=== PATIENT | female | born 1965 | race Hispanic/Latino ===

== ENCOUNTER 2020-11-09 01:14 | Inpatient (IN) | payer MEDICAID ==
--- NOTE | 2020-11-09 01:45 | Emergency Department Report ---
HPI - General Chief Complaint: Cardiac Arrest/CPR Time Seen by Provider: 11/09/20 01:37 - HPI HPI: Room 20 The patient is a 55-year-old female present with a chief complaint of cardiac arrest. Per the family the patient was last seen approximately 5 minutes prior was found by family unresponsive on the bed.family initiated CPR after calling 911. EMS arrived on scene and states that the patient was found to be in asystole initially. ACLS protocols were initiated and patient was intubated using a Paul airway. EMS states they administered 3 rounds epinephrine and 1 round of sodium bicarb and there was ROSC. EMS then initiated an epi drip. Upo n arrival to the ED the patient had a pulse but was hypotensive. The Paul airway was removed and the patient was intubated by myself using 7.0 ET tube. The patient had an IO in the left lower extremity placed by EMS however his functionality upon arrival to the ED was questionable. Subsequently a central line was placed by myself expediently to initiate vasopressors ED Past Medical Hx - Past Medical History Previous Medical History?: Yes Hx of Cancer: Yes (Breast CA) Additional medical history: Cellulitis - Family History Family history: no significant - Social History Smoking Status: Unknown if ever smoked Substance Use Type: None ED Review of Systems ROS: Stated complaint: CARDIAC ARREST Other details as noted in HPI Comment: Unobtainable due to pts medical conditions Physical Exam - Physical Exam Physical Exam: GENERAL: The patient is well-developed well-nourished female lying on stretcher being bagged via Paul airway. [] HEENT: Normocephalic. Atraumatic. Pupils 5 mm bilaterally NECK: Supple. Trachea midline CHEST/LUNGS: Breath sounds equal bilaterally with bagging after intubation by myself HEART/CARDIOVASCULAR: Regular. There is no tachycardia. There is no gallop rub or murmur. ABDOMEN: Abdomen is soft, nontender. Patient has normal bowel sounds. There is no abdominal distention. SKIN: There is diffuse intertriginous candidiasis present NEURO: GCS 3 T. MUSCULOSKELETAL: There is no evidence of acute injury. ED Course - Reevaluation(s) Reevaluation #1: 11/09/20 04:12 Informed by nursing that patient had a run of V. tach. Ordered amiodarone bolus and drip - Consultations Consultation #1: 11/09/20 01:57 EKG sent to and discussed with rubber goods repairer Dr. Matt Santoyo. No STEMI/no posterior PA. Recommends initiating heparin drip Consultation #2: 11/09/20 04:50 Fiber Heel Piece Shaper paged 11/09/20 05:25 CT findings discussed with Dr. Sandhu-left small apical pneumothorax can be observed for now. Recommends daily chest x-ray and having surgery on board. Consultation #3: 11/09/20 05:27 Case discussed with surgeon Dr. Haney - Central Line Placement Right Femoral Consent Obtained: emergent situation Time Out Performed: No Patient Placed on Monitor/Pulse Ox: No MD Prep: mask, gown, gloves Central Line Prep: Chlorhexidine scrub Local Anesthesia Used: Lidocaine 1% Amount of Anesthesia Used (mls): 5 Ultrasound Used for Placement: No Central Line Lumen Inserted: triple Reason for Insertion: High Alert Medication Bloods Obtained for Lab: No Central Line Position: good blood return, all ports aspirated, flus Dressing Applied: Tegaderm Patient Tolerated Procedure: no complications Complications: none - Intubation Time Out Performed: No Laryngoscope: Nasim Size: 3 ET Tube Size: 7 Tube Secured Depth (cm): 21 Tube Secured Location: lips Tube Placement Confirmation: visualized tube passing t, equal breath sounds bilat, no breath sounds over epi, confirmation by capnometr Patient Tolerated Procedure: no complications Intubation Complications: none ED Medical Decision Making - Lab Data Result diagrams: 11/09/20 01:43 11/09/20 01:43 Laboratory Tests 11/09/20 11/09/20 11/09/20 01:39 01:43 01:43 WBC 34.3 H RBC 4.25 Hgb 11.4 Hct 36.7 MCV 86 MCH 27 L MCHC 31 RDW 15.4 H Plt Count 298 Lymph # (Auto) Gold Wheel Blocker And Polisher Add Manual Diff Complete Total Counted 200 Seg Neuts % (Manual) 65.0 Band Neutrophils % 8.5 Lymphocytes % (Manual) 21.5 Monocytes % (Manual) 5.0 Nucleated RBC % Not Reportable Seg Neutrophils # Man 22.3 H Band Neutrophils # 2.9 Lymphocytes # (Manual) 7.4 H Abs React Lymphs (Man) 0.0 Monocytes # (Manual) 1.7 H Eosinophils # (Manual) 0.0 Basophils # (Manual) 0.0 Metamyelocytes # 0.0 Myelocytes # 0.0 Promyelocytes # 0.0 Blast Cells # 0.0 WBC Morphology Not Reportable Hypersegmented Neuts Not Reportable Hyposegmented Neuts Not Reportable Hypogranular Neuts Not Reportable Smudge Cells Not Reportable Toxic Granulation Not Reportable Toxic Vacuolation Not Reportable Dohle Bodies Not Reportable Pelger-Huet Anomaly Not Reportable Latia Rods Not Reportable Platelet Estimate Consistent w auto Clumped Platelets Not Reportable Plt Clumps, EDTA Not Reportable Large Platelets Not Reportable Giant Platelets Not Reportable Platelet Satelliting Not Reportable Plt Morphology Comment Not Reportable RBC Morphology Not Reportable Dimorphic RBCs Not Reportable Polychromasia Not Reportable Hypochromasia Not Reportable Poikilocytosis Not Reportable Anisocytosis 1+ Microcytosis Not Reportable Macrocytosis Not Reportable Spherocytes Not Reportable Pappenheimer Bodies Not Reportable Sickle Cells Not Reportable Target Cells Not Reportable Tear Drop Cells Not Reportable Ovalocytes Not Reportable Helmet Cells Not Reportable [place] Bodies Not Reportable [place] Rings Not Reportable [place] Cells Not Reportable Bite Cells Not Reportable Crenated Cell Not Reportable Elliptocytes Not Reportable Acanthocytes (Spur) Not Reportable Rouleaux Not Reportable Hemoglobin C Crystals Not Reportable Schistocytes Not Reportable Malaria parasites Not Reportable Bebeto Bodies Not Reportable Hem Pathologist Commnt No PT 16.3 H INR 1.25 H APTT 49.1 H ABG pH 7.229 L POC ABG pCO2 50.1 H POC ABG pO2 69.4 L POC ABG HCO3 20.5 ABG O2 Saturation 90.2 POC ABG Base Excess -7.3 ABG Hemoglobin 14.2 ABG Oxyhemoglobin 88.9 L ABG Methemoglobin 0.3 ABG Potassium 3.0 L ABG Chloride 99.0 ABG Glucose 361 H Carboxyhemoglobin 1.1 FiO2 % 100.0 Sodium Potassium Chloride Carbon Dioxide Anion Gap BUN Creatinine Estimated GFR BUN/Creatinine Ratio Glucose Calcium Magnesium Total Bilirubin AST ALT Alkaline Phosphatase Total Creatine Kinase CK-MB (CK-2) CK-MB (CK-2) Rel Index Troponin T NT-Pro-B Natriuret Pep Total Protein Albumin Albumin/Globulin Ratio Triglycerides Cholesterol LDL Cholesterol Direct HDL Cholesterol Cholesterol/HDL Ratio TSH Free T4 Arterial Blood Glucose 361 H Arterial Blood Ionized Calcium 4.3 L Blood Type Antibody Screen 11/09/20 11/09/20 11/09/20 01:43 01:43 01:43 WBC RBC Hgb Hct MCV MCH MCHC RDW Plt Count Lymph # (Auto) Add Manual Diff Total Counted Seg Neuts % (Manual) Band Neutrophils % Lymphocytes % (Manual) Monocytes % (Manual) Nucleated RBC % Seg Neutrophils # Man Band Neutrophils # Lymphocytes # (Manual) Abs React Lymphs (Man) Monocytes # (Manual) Eosinophils # (Manual) Basophils # (Manual) Metamyelocytes # Myelocytes # Promyelocytes # Blast Cells # WBC Morphology Hypersegmented Neuts Hyposegmented Neuts Hypogranular Neuts Smudge Cells Toxic Granulation Toxic Vacuolation Dohle Bodies Pelger-Huet Anomaly Latia Rods Platelet Estimate Clumped Platelets Plt Clumps, EDTA Large Platelets Giant Platelets Platelet Satelliting Plt Morphology Comment RBC Morphology Dimorphic RBCs Polychromasia Hypochromasia Poikilocytosis Anisocytosis Microcytosis Macrocytosis Spherocytes Pappenheimer Bodies Sickle Cells Target Cells Tear Drop Cells Ovalocytes Helmet Cells Trevizo[place] Bodies [place] Rings [place] Cells Bite Cells Crenated Cell Elliptocytes Acanthocytes (Spur) Rouleaux Hemoglobin C Crystals Schistocytes Malaria parasites Bebeto Bodies Hem Pathologist Commnt PT INR APTT ABG pH POC ABG pCO2 POC ABG pO2 POC ABG HCO3 ABG O2 Saturation POC ABG Base Excess ABG Hemoglobin ABG Oxyhemoglobin ABG Methemoglobin ABG Potassium ABG Chloride ABG Glucose Carboxyhemoglobin FiO2 % Sodium 138 Potassium 3.7 Chloride 99.3 Carbon Dioxide 15 L Anion Gap 27 BUN 5 L Creatinine 0.8 Estimated GFR > 60 BUN/Creatinine Ratio 6 Glucose 260 H Calcium 7.1 L Magnesium 1.40 L Total Bilirubin 0.30 AST 267 H ALT 114 H Alkaline Phosphatase 258 H Total Creatine Kinase 117 CK-MB (CK-2) 4.1 H CK-MB (CK-2) Rel Index 3.5 Troponin T 0.043 H NT-Pro-B Natriuret Pep 3038 H Total Protein 5.3 L Albumin 2.7 L Albumin/Globulin Ratio 1.0 Triglycerides 168 H Cholesterol 86 LDL Cholesterol Direct 41 L HDL Cholesterol 23 L Cholesterol/HDL Ratio 3.73 TSH 36.290 H Free T4 0.89 Arterial Blood Glucose Arterial Blood Ionized Calcium Blood Type A NEGATIVE Antibody Screen Negative - Radiology Data Radiology results: report reviewed (CT head, CT chest, chest x-ray), image reviewed (Chest x-ray, CT head, CT chest) interpreted by me: Chest x-ray-no definite focal infiltrate, no pneumothorax. ET tube in appropriate position. [address] [address] Cat Scan Report Signed Patient: VANDANA VEGAS MR#: [id number] 37 : 1965 Acct:[id number] Age/Sex: 55 / F ADM Date: 11/09/20 Loc: ED Attending Dr: Ordering Physician: FLOR CANNON MD Date of Service: 11/09/20 Procedure(s): CT head/brain wo con Accession Number(s): [id number] cc: FLOR CANNON MD Examination: CT of the head without contrast Clinical information: Altered mental status. Cardiac arrest. Comparison: No relevant prior study is available for comparison Technical: Multiple axial CT images of the head were obtained without intravenous contrast. Sagittal and coronal reformats were obtained. All CTs at this facility utilize dose reduction techniques including automated exposure control, iterative reconstruction and weight based dosing when appropriate to reduce patient radiation dose to as low as reasonable achievable. Findings: INTRACRANIAL CONTENTS: There is no CT evidence of acute intracranial hemorrhage or large territorial infarct. The ventricular system appears normal in size. No extra-axial fluid collections are identified. SKULL: No acute bony abnormality is visualized. ORBITS: The bilateral orbits and globes appear normal PARANASAL SINUSES / MASTOID AIR CELLS: Paranasal sinuses and mastoid air cells appear clear. Impression: 1. No CT evidence of acute intracranial process. Signer Name: Shirley Arshad MD Signed: 11/09/2020 4:31 AM Workstation Name: [id number] Transcribed By: EB Dictated By: Shirley Arshad MD Electronically Authentic ated By: Shirley Arshad MD Signed Date/Time: 11/09/20430 DD/ 7 TD/TT: Print Cancel [address] [address] Cat Scan Report Signed Patient: VANDANA VEGAS MR#: [id number] 37 : 1965 Acc t:[id number] Age/Sex: 55 / F ADM Date: 11/09/20 Loc: ED Attending Dr: Ordering Physician: FLOR CANNON MD Date of Service: 11/09/20 Procedure(s): CT angio chest Accession Number(s): [id number] cc: FLOR CANNON MD CTA CHEST WITH IV CONTRAST INDICATION: Respiratory failure. TECHNIQUE: Axial CT images were obtained through the chest after injection of IV contrast. Coronal oblique 2- D reconstruction images were produced. 3 plane MIP reconstruction images were produced at an independent workstation. All CTs at this facility utilize dose reduction techniques including automated exposure control, iterative reconstruction and weight based dosing when appropriate to reduce patient radiation dose to as low as reasonable achievable. COMPARISON: Chest radiograph, 11/09/2020 FINDINGS: Endotracheal tube is present with tip approximately 1.8 cm above the level of the penny. No filling defects are visualized within the central or segmental pulmonary arteries to suggest pulmonary embolism. The heart is normal in size. Evaluation of the lung parenchyma demonstrates several patchy irregular densities predominantly within the bilateral upper lobes. There is bibasilar atelectasis, right greater than left. There is a small left apical pneumothorax. Limited imaging of the upper abdomen demonstrates demonstrates an esophagogastric tube with distal tip residing in the distal stomach. There is a 1.5 cm calcified stone within the gallbladder. Bones and soft tissues: Evaluation of bony and soft tissue structures demonstrates no acute abnormality. IMPRESSION: 1. Trace left apical pneumothorax. 2. Faint patchy parenchymal densities predominantly involving the bilateral upper lobes. Findings are nonspe cific and considerations would include infectious or inflammatory process, embolic phenomenon or neoplasm. 3. No evidence of pulmonary embolism. Positive critical value of small left apical pneumothorax was identified at approximately 3:40 AM and personally communicated to Dr. Cannon in the Emergency Department at 3:48. CRITICAL RESULT: Time of Discovery (SHELLS INSPECTOR/CDT): 3:40 AM Time of Communication (SHELLS INSPECTOR/CDT): 3:48 AM Licensed Practitioner Receiving Report: Dr. Cannon Read-Back Performed: Yes. Signer Name: Shirley Arshad MD Signed: 11/09/2020 4:49 AM Workstation Name: [id number] Transcribed By: PRASAD Dictated By: Shirley Arshad MD Electronically Authenticated By: Shirley Arshad MD Signed Date/Time: 11/09/20448 DD/ 8 TD/TT: Print Cancel [facility] [address] [place] [address] XRay Report Signed Patient: VANDANA VEGAS MR#: [id number] 37 : 1965 Acct:[id number] Age/Sex: 55 / F ADM Date: 11/09/20 Loc: ED Attending Dr: Ordering Physician: FLOR CANNON MD Date of Service: 11/09/20 Procedure(s): XR chest 1V ap Accession Number(s): [id number] cc: FLOR CANNON MD Fluoro Time In Minutes: CHEST 1 VIEW, 11/09/2020 1:33 AM CLINICAL INFORMATION/INDICATION: Respiratory failure. Endotracheal tube placement COMPARISON: None. FINDINGS: SUPPORT DEVICES: The distal and of the esophagogastric tube is located approximately 1.8 cm above the level the penny. An esophagogastric tube is present with tip overlying the expected position of the distal stomach. Right- sided Port-A-Cath is also present. HEART: The cardiac silhouette is normal in size. LUNGS/PLEURA: The lungs appear grossly clear of focal airspace disease or significant pleural effusion. ADDITIONAL FINDINGS: There is moderate gaseous distention of the stomach. IMPRESSION: 1. Placement of endotracheal tube and esophagogastric tube as above. Signer Name: Shirley Arshad MD Signed: 11/09/2020 2:17 AM Workstation Name: [id number] Transcribed By: PRASAD Dictated By: Shirley Arshad MD Electronically Authenticated By: Shirley Arshad MD Signed Date/Time: 11/09/20216 DD/ 4 TD/TT: Print Cancel - Differential Diagnosis Cardiac arrest Critical Care Time: Yes Critical care time in (mins) excluding proc time.: 30 Critical care attestation.: If time is entered above; I have spent that time in minutes in the direct care of this critically ill patient, excluding procedure time. ED Disposition Clinical Impression: Cardiac arrest Disposition: OP ADMIT IP TO THIS HOSP Is pt being admited?: Yes Does the pt Need Aspirin: No Condition: Critical Referrals: JUDY BOLAND MD [Primary Care Provider] - 3-5 Days Time of Disposition: 05:20 (Hospitalist notified (Dr Tello))
[2020-11-09 01:57] LABS: Hematocrit 36.7 % (30.3-42.9); Hemoglobin 11.4 gm/dl (10.1-14.3); Mean Corpuscular HGB Conc 31 % (30-34); Mean Corpuscular Volume 86 fl (79-97); Platelet Count 298 K/mm3 (140-440); Red Blood Count 4.25 M/mm3 (3.65-5.03); Red Cell Distribution Width 15.4 % (13.2-15.2)
[2020-11-09] MEDS ORDERED: SODIUM CHLORIDE 0.9% 1000 ML 1,000 ML IV ONE (02:06)
--- NOTE | 2020-11-09 02:22 | XRay Report ---
CHEST 1 VIEW, 11/09/2020 1:33 AM CLINICAL INFORMATION/INDICATION: Respiratory failure. Endotracheal tube placement COMPARISON: None. FINDINGS: SUPPORT DEVICES: The distal and of the esophagogastric tube is located approximately 1.8 cm above the level the penny. An esophagogastric tube is present with tip overlying the expected position of the distal stomach. Right-sided Port-A-Cath is also present. HEART: The cardiac silhouette is normal in size. LUNGS/PLEURA: The lungs appear grossly clear of focal airspace disease or significant pleural effusio n. ADDITIONAL FINDINGS: There is moderate gaseous distention of the stomach. IMPRESSION: 1. Placement of endotracheal tube and esophagogastric tube as above. Signer Name: Shirley Arshad MD Signed: 11/09/2020 2:17 AM Workstation Name: [id number]
[2020-11-09 02:24] LABS: Alanine Aminotransferase 114 units/L (7-56); Albumin 2.7 g/dL (3.9-5); BUN/Creatinine Ratio 6; Blood Urea Nitrogen 5 mg/dL (7-17); Calcium 7.1 mg/dL (8.4-10.2); Creatine Kinase MB 4.1 ng/mL (0.0-4.0); Hemolysis Index 17
[2020-11-09 02:34] LABS: Free T4 (Free Thyroxine) 0.89 ng/dL (0.76-1.46)
[2020-11-09 02:47] LABS: INR 1.25 (0.87-1.13)
[2020-11-09 02:48] LABS: Partial Thromboplastin Time 49.1 Sec. (24.2-36.6)
[2020-11-09] MEDS ORDERED: MAGNESIUM SULFATE 2 GM/50 ML BAG IV ONE ×2 (02:49→16:00)
[2020-11-09] MEDS ORDERED: PIPERACIL/TAZOBACTA 4.5/NS 100 4.5 GM/100 ML VIAL IV ONE (03:04)
[2020-11-09] MEDS ORDERED: ROCURONIUM 50 MG/5 ML INJ IV ONE ×2 (03:24→03:25)
[2020-11-09] MEDS ORDERED: AMIODARONE 150 MG in DEXTROSE 5% IN WATER 97 ML IV ONE (04:08)
[2020-11-09 04:15] LABS: Band Neutrophils # (Manual) 2.9 K/mm3; Total Cells Counted 200
[2020-11-09 04:16] LABS: Anisocytosis 1+; Platelet Estimate Consistent w Auto
[2020-11-09 04:26] LABS: Chol/HDL Ratio 3.73 %; HDL Cholesterol 23 mg/dL (40-59); LDL Cholesterol,Direct 41 mg/dL (50-130)
--- NOTE | 2020-11-09 04:35 | Cat Scan Report ---
Examination: CT of the head without contrast Clinical information: Altered mental status. Cardiac arrest. Comparison: No relevant prior study is available for comparison Technical: Multiple axial CT images of the head were obtained without intravenous contrast. Sagittal and coronal reformats were obtained. All CTs at this facility utilize dose reduction techniques inc luding automated exposure control, iterative reconstruction and weight based dosing when appropriate to reduce patient radiation dose to as low as reasonable achievable. Findings: INTRACRANIAL CONTENTS: There is no CT evidence of acute intracranial hemorrhage or large territorial infarct. The ventricular system appears normal in size. No extra-axial fluid collections are identifi ed. SKULL: No acute bony abnormality is visualized. ORBITS: The bilateral orbits and globes appear normal PARANASAL SINUSES / MASTOID AIR CELLS: Paranasal sinuses and mastoid air cells appear clear. Impression: 1. No CT evidence of acute intracranial process. Signer Name: Shirley Arshad MD Signed: 11/09/2020 4:31 AM Workstation Name: [id number]
--- NOTE | 2020-11-09 04:53 | Cat Scan Report ---
CTA CHEST WITH IV CONTRAST INDICATION: Respiratory failure. TECHNIQUE: Axial CT images were obtained through the chest after injection of IV contrast. Coronal oblique 2-D reconstruction images were produced. 3 plane MIP reconstruction images were produced at an [employer] workstation. All CTs at this facility utilize dose reduction techniques including automated expos ure control, iterative reconstruction and weight based dosing when appropriate to reduce patient radi ation dose to as low as reasonable achievable. COMPARISON: Chest radiograph, 11/09/2020 FINDINGS: Endotracheal tube is present with tip approximately 1.8 cm above the level of the penny. No filling defects are visualized within the central or segmental pulmonary arteries to suggest pulmo nary embolism. The heart is normal in size. Evaluation of the lung parenchyma demonstrates several pa tchy irregular densities predominantly within the bilateral upper lobes. There is bibasilar atelectas is, right greater than left. There is a small left apical pneumothorax. Limited imaging of the upper abdomen demonstrates demonstrates an esophagogastric tube with distal ti p residing in the distal stomach. There is a 1.5 cm calcified stone within the gallbladder. Bones and soft tissues: Evaluation of bony and soft tissue structures demonstrates no acute abnormali ty. IMPRESSION: 1. Trace left apical pneumothorax. 2. Faint patchy parenchymal densities predominantly involving the bilateral upper lobes. Findings are nonspecific and considerations would include infectious or inflammatory process, embolic phenomenon or neoplasm. 3. No evidence of pulmonary embolism. Positive critical value of small left apical pneumothorax was identified at approximately 3:40 AM and personally communicated to Dr. Brock in the Emergency Department at 3:48. CRITICAL RESULT: Time of Discovery (BLOCK AND CASE MAKER/CDT): 3:40 AM Time of Communication (BLOCK AND CASE MAKER/CDT): 3:48 AM Licensed Practitioner Receiving Report: Dr. Brock Read-Back Performed: Yes. Signer Name: Shirley Arshad MD Signed: 11/09/2020 4:49 AM Workstation Name: [id number]
[2020-11-09] MEDS: AMIODARONE 900 MG in DEXTROSE 5% IN WATER 482 ML IV SCH (04:56)
[2020-11-09] MEDS ORDERED: MORPHINE 2 MG/1 ML INJ IV PRN (05:14)
[2020-11-09] MEDS ORDERED: ONDANSETRON 4 MG/2 ML INJ IV PRN (05:14)
--- NOTE | 2020-11-09 05:26 | History and Physical Report ---
History of Present Illness Date of examination: 11/09/20 Date of admission: 11/09/2020 Chief complaint: Cardiac Arrest History of present illness: 55-year-old female brought into the emergency room by EMS today in cardiac arrest. Patient was said to be unresponsive and family had initiated CPR prior to arrival of EMS. Patient was found to be in asystole and resuscitative measures were commenced and patient subsequently intubated. EMS and given about 3 rounds of epinephrine and 1 round of sodium bicarbonate with return of spontaneous circulation. She was subsequently initiated on epinephrine drip. Upon arrival in the emergency room patient was found to be hypotensive which was subsequently commenced on IV fluid and pressors. Most of the history was gotten from the emergency room staff as patient is currently intubated and there were no family members available. Work-up reveals leukocytosis of 34.3, hypomagnesemia of 1.4, hypocalcemia of 7.1, abnormally elevated liver enzymes. During the course of stay in the emergency room, patient was said to have had some runs of V. tach was subsequently placed on IV amiodarone. Chest x-ray did not reveal any acute abnormality. CTA of the chest reveals trace left apical pneumothorax, faint patchy parenchym al densities involving the bilateral upper lobes. Findings are nonspecific and considerations include infectious or inflammatory process, embolic phenomena or neoplasm. No evidence of pulmonary embolism. General surgeon Dr. Haney has been consulted by the ER physician for the pneumothorax. Optical Effects Line Up Person has also been consulted by the ER physician for the cardiac arrhythmia. Patient has also been placed on heparin drip per recommendation of the jackhammer operator. [facility] [employer] [facility] has also been notified by the ER physician. Past History Past Medical History: other (Breast Ca., H/O Cellulitis) Past Surgical History: Other (Unknown) Social history: other (Unknown) Family history: other (Unknown) Medications and Allergies Allergies Allergy/AdvReac Type Severity Reaction Status Date / Time Unable to Assess Allergy Unverified 11/09/20 01:25 Active Meds: Active Medications Dextrose (Dextrose 50% In Water (25gm) 50 Ml Syringe) 50 ml IV Q30MIN PRN; Protocol PRN Reason: Hypoglycemia Enoxaparin Sodium (Enoxaparin 40 Mg/0.4 Ml Inj) 40 mg SUB-Q QDAY@2200 TROY; Protocol Amiodarone HCl 900 mg/ (Dextrose) 500 mls @ 33.333 mls/hr IV DIRECT TROY; Protocol Last Admin: 11/09/20 04:56 Dose: 1 mg/min, 33.333 mls/hr Documented by: Sodium Chloride (Nacl 0.9% 1000 Ml) 1,000 mls @ 125 mls/hr IV DIRECT TROY Morphine Sulfate (Morphine 2 Mg/1 Ml Inj) 2 mg IV Q4H PRN PRN Reason: Pain, Moderate (4-6) Ondansetron HCl (Ondansetron 4 Mg/2 Ml Inj) 4 mg IV Q8H PRN PRN Reason: Nausea And Vomiting Sodium Chloride (Sodium Chloride 0.9% 10 Ml Flush Syringe) 10 ml IV BID TROY Sodium Chloride (Sodium Chloride 0.9% 10 Ml Flush Syringe) 10 ml IV PRN PRN PRN Reason: LINE FLUSH Review of Systems ROS unobtainable: due to endotracheal tube Exam - Constitutional Vitals: Temp Pulse Resp BP Pulse Ox 104 H 27 H 182/112 91 11/09/20 05:06 11/09/20 05:06 11/09/20 05:06 11/09/20 05:06 General appearance: Present: no acute distress, well-nourished - EENT Eyes: Present: PERRL, EOM intact. Absent: scleral icterus ENT: hearing intact, clear oral mucosa, dentition normal, other (Multiple areas of bruises on scalp) - Neck Neck: Present: supple, normal ROM - Respiratory Respiratory effort: other (Intubated) Respiratory: bilateral: CTA - Cardiovascular Rhythm: regular Heart Sounds: Present: S1 & S2. Absent: gallop, systolic murmur, diastolic murmur, rub, click - Extremities Extremities: no ischemia, pulses intact, pulses symmetrical, No edema, Full ROM Peripheral Pulses: within normal limits - Abdominal General gastrointestinal: Present: soft, non-tender, non-distended, normal bowel sounds. Absent: mass - Integumentary Integumentary: Present: clear, warm, dry, normal turgor. Absent: jaundice, rash - Musculoskeletal Musculoskeletal: strength equal bilaterally - Psychiatric Psychiatric: cooperative - Neurologic Neurologic: CNII-XII intact, no focal deficits, other (Intubated and Sedated) HEART Score - HEART Score Troponin: Troponin T 0.043 ng/mL (0.00-0.029) H 11/09/20 01:43 Results - Labs CBC & Chem 7: 11/09/20 05:31 11/09/20 01:43 Labs: Abnormal lab results 11/09/20 11/09/20 11/09/20 Range/Units 01:39 01:43 01:43 WBC 34.3 H (4.5-11.0) K/mm3 MCH 27 L (28-32) pg RDW 15.4 H (13.2-15.2) % Seg Neutrophils # Man 22.3 H (1.8-7.7) K/mm3 Lymphocytes # (Manual) 7.4 H (1.2-5.4) K/mm3 Monocytes # (Manual) 1.7 H (0.0-0.8) K/mm3 PT 16.3 H (12.2-14.9) Sec. INR 1.25 H (0.87-1.13) APTT 49.1 H (24.2-36.6) Sec. ABG pH 7.229 L (7.320-7.450) POC ABG pCO2 50.1 H (32.0-48.0) mmHg POC ABG pO2 69.4 L (83-108) mmHg ABG Oxyhemoglobin 88.9 L (94-98) ABG Potassium 3.0 L (3.40-4.50) mmol/L ABG Glucose 361 H (65-95) mg/dL Carbon Dioxide (22-30) mmol/L BUN (7-17) mg/dL Glucose (65-100) mg/dL Calcium (8.4-10.2) mg/dL Magnesium (1.7-2.3) mg/dL AST (5-40) units/L ALT (7-56) units/L Alkaline Phosphatase (35-129) units/L CK-MB (CK-2) (0.0-4.0) ng/mL Troponin T (0.00-0.029) ng/mL NT-Pro-B Natriuret Pep (0-900) pg/mL Total Protein (6.3-8.2) g/dL Albumin (3.9-5) g/dL Triglycerides (2-149) mg/dL LDL Cholesterol Direct (50-130) mg/dL HDL Cholesterol (40-59) mg/dL TSH (0.270-4.200) mlU/mL Arterial Blood Glucose 361 H (65-95) mg/dL Arterial Blood Ionized Calcium 4.3 L (4.6-5.3) mg/dL 11/09/20 11/09/20 Range/Units 01:43 01:43 WBC (4.5-11.0) K/mm3 MCH (28-32) pg RDW (13.2-15.2) % Seg Neutrophils # Man (1.8-7.7) K/mm3 Lymphocytes # (Manual) (1.2-5.4) K/mm3 Monocytes # (Manual) (0.0-0.8) K/mm3 PT (12.2-14.9) Sec. INR (0.87-1.13) APTT (24.2-36.6) Sec. ABG pH (7.320-7.450) POC ABG pCO2 (32.0-48.0) mmHg POC ABG pO2 (83-108) mmHg ABG Oxyhemoglobin (94-98) ABG Potassium (3.40-4.50) mmol/L ABG Glucose (65-95) mg/dL Carbon Dioxide 15 L (22-30) mmol/L BUN 5 L (7-17) mg/dL Glucose 260 H (65-100) mg/dL Calcium 7.1 L (8.4-10.2) mg/dL Magnesium 1.40 L (1.7-2.3) mg/dL AST 267 H (5-40) units/L ALT 114 H (7-56) units/L Alkaline Phosphatase 258 H (35-129) units/L CK-MB (CK-2) 4.1 H (0.0-4.0) ng/mL Troponin T 0.043 H (0.00-0.029) ng/mL NT-Pro-B Natriuret Pep 3038 H (0-900) pg/mL Total Protein 5.3 L (6.3-8.2) g/dL Albumin 2.7 L (3.9-5) g/dL Triglycerides 168 H (2-149) mg/dL LDL Cholesterol Direct 41 L (50-130) mg/dL HDL Cholesterol 23 L (40-59) mg/dL TSH 36.290 H (0.270-4.200) mlU/mL Arterial Blood Glucose (65-95) mg/dL Arterial Blood Ionized Calcium (4.6-5.3) mg/dL Assessment and Plan - Patient Problems (1) Cardiac arrest Current Visit: Yes Status: Acute Plan to address problem: Etiology unclear. Patient resuscitated and successfully intubated. Optical Effects Line Up Person and slider assembler has been consulted for evaluation. (2) Hypomagnesemia Current Visit: Yes Status: Acute Plan to address problem: Magnesium will be repleted and will monitor chemistry. (3) Elevated liver enzymes Current Visit: Yes Status: Acute Plan to address problem: We will monitor liver enzymes. Consult placed to gastroenterology for further evaluation. (4) Pneumothorax, left Current Visit: Yes Status: Acute Plan to address problem: Patient has a small left apical pneumothorax. General surgeon was consulted by the ER physician for possible evaluation if needed. We will follow-up with daily chest x-ray. (5) Cardiac arrhythmia Current Visit: Yes Status: Acute Plan to address problem: During the course of her stay in the emergency room patient had some runs of V. tach. Optical Effects Line Up Person was consulted by the ER physician. (6) Leukocytosis Current Visit: Yes Status: Acute Plan to address problem: No obvious source of infection however CT angiogram of the chest reveals possible infectious process. Patient has been commenced on empiric IV antibiotics. (7) DVT prophylaxis Current Visit: Yes Status: Acute Plan to address problem: Patient currently on anticoagulation. (8) Full code status Current Visit: Yes Status: Acute Plan to address problem: Patient is full code. Critical care time spent on patient greater than 60 minutes.
[2020-11-09] MEDS ORDERED: HEPARIN 10,000 UNITS/10 ML VIAL IV PRN (05:28)
[2020-11-09 05:48] LABS: Hemoglobin 15.3 gm/dl (10.1-14.3)
[2020-11-09 05:57] LABS: Hematocrit 47.2 % (30.3-42.9)
[2020-11-09 05:58] LABS: INR 1.12 (0.87-1.13); Partial Thromboplastin Time 32.1 Sec. (24.2-36.6)
[2020-11-09] MEDS: PIPERACIL/TAZOBACTA 4.5/NS 100 4.5 GM/100 ML VIAL IV SCH ×3 (08:27→21:20)
[2020-11-09] MEDS: HEPARIN/ 0.45% NACL DRIP 25,000 UNIT/500 ML BAG IV SCH (08:59)
[2020-11-09] MEDS ORDERED: fentaNYL 100 MCG/2 ML INJ IV PRN (09:04)
--- NOTE | 2020-11-09 09:42 | Gastroenterology Consultation ---
History of Present Illness - Reason for Consult Consult date: 11/09/20 Abnormal LFTs Requesting physician: PERRY ROJAS - History of Present Illness The patient is intubated/sedated; no family members available. History is per the chart and staff. She was brought to the ER after cardiac arrest at home, and was in asystole in the ER. She was intubated and resuscitated, and transferred to the ICU. CTA was negative for a PE. Cardiac w/u in progress. She was noted to have a port present (hx of breast cancer), a WBC of 35K, and elevated LFTs. Since admit to the ICU, she has been non-responsive with myoclonic jerking (despite no current sedation); a CT shows no acute intracranial trauma. Past History Past Medical History: other (Breast Ca., H/O Cellulitis) Past Surgical History: Other (Port a cath) Social history: other (Unknown) Family history: other (Unknown) Medications and Allergies Allergies Allergy/AdvReac Type Severity Reaction Status Date / Time Unable to Assess Allergy Unverified 11/09/20 01:25 Active Meds: Active Medications Dextrose (Dextrose 50% In Water (25gm) 50 Ml Syringe) 0 ml IV Q30MIN PRN; Protocol PRN Reason: Hypoglycemia Fentanyl (Fentanyl 100 Mcg/2 Ml Inj) 50 mcg IV Q10MIN PRN PRN Reason: ANALGESIA Stop: 11/10/20 09:03 Heparin Sodium (Porcine) (Heparin 10,000 Units/10 Ml Vial) 4,100 unit 40 unit/kg (4100 unit) IV Q6H PRN PRN Reason: Anti-Xa Assay<0.1 units/ml Hydrophilic Ointment (Lip Therapy Vaseline) 1 applic TP Q2HR PRN PRN Reason: Dry Lips Amiodarone HCl 900 mg/ (Dextrose) 500 mls @ 33.333 mls/hr IV DIRECT TROY; Protocol Last Admin: 11/09/20 04:56 Dose: 1 mg/min, 33.333 mls/hr Documented by: Sodium Chloride (Nacl 0.9% 1000 Ml) 1,000 mls @ 125 mls/hr IV DIRECT TROY Heparin Sodium/Sodium Chloride (Heparin/ 0.45% Nacl-25,000 Unit/500 Ml) 25,000 unit in 500 mls @ 20 mls/hr IV TITRATE TROY; Protocol Last Admin: 11/09/20 08:59 Dose: 1,000 units/hr, 20 mls/hr Documented by: Piperacillin Sod/Tazobactam Sod (Zosyn/Ns 4.5gm/100ml) 4.5 gm in 100 mls @ 200 mls/hr IV Q8H TROY; Protocol Last Admin: 11/09/20 08:27 Dose: Not Given Documented by: Fentanyl Citrate (Fentanyl Drip Premix) 2,000 mcg in 100 mls @ 5.15 mls/hr IV TITR TROY; Protocol Propofol (Diprivan 10 Mg/Ml) 1,000 mg in 100 mls @ 3.09 mls/hr IV TITR TROY; Protocol Last Admin: 11/09/20 09:33 Dose: 5 mcg/kg/min, 3.09 mls/hr Documented by: Morphine Sulfate (Morphine 2 Mg/1 Ml Inj) 2 mg IV Q4H PRN PRN Reason: Pain, Moderate (4-6) Multi-Ingred Cream/Lotion/Oil/Oint (Mineral Oil/Petrolatum, White Ophth Oint 3.5 Gm) 1 applic OU Q4HR PRN PRN Reason: Dry Eye(s) Ondansetron HCl (Ondansetron 4 Mg/2 Ml Inj) 4 mg IV Q8H PRN PRN Reason: Nausea And Vomiting Sodium Chloride (Sodium Chloride 0.9% 10 Ml Flush Syringe) 10 ml IV BID TROY Sodium Chloride (Sodium Chloride 0.9% 10 Ml Flush Syringe) 10 ml IV PRN PRN PRN Reason: LINE FLUSH I HAVE REVIEWED AND RECONCILED MEDICATIONS Review of Systems - Review of Systems ROS unobtainable: due to endotracheal tube, due to mental status Exam - Constitutional Vital Signs: Temp Pulse Resp BP Pulse Ox 98.7 F 111 H 28 H 152/98 92 11/09/20 08:00 11/09/20 07:41 11/09/20 06:16 11/09/20 07:41 11/09/20 06:16 General appearance: other (Myoclonic jerking; no response to physical or verbal stimuli) - EENT Eyes: PERRL ENT: hearing intact, clear oral mucosa - Neck Neck: supple, normal ROM - Respiratory Respiratory effort: normal Respiratory: bilateral: CTA (Vent) - Breasts Breasts: other (Rash on R breast with mild cellulitis) - Cardiovascular Rhythm: regular Heart Sounds: Present: S1 & S2 Extremities: no ischemia - Gastrointestinal General gastrointestinal: Present: soft, non-tender, non-distended - Integumentary Integumentary: Present: clear, warm, dry - Neurologic Neurological: other (Nonresponsive to verbal or tactile stimuli; myoclonic jerking without focality) - Labs CBC & Chem 7: 11/09/20 05:31 11/09/20 01:43 Lab Results: Laboratory Results - last 24 hr 11/09/20 11/09/20 11/09/20 01:39 01:43 01:43 WBC 34.3 H RBC 4.25 Hgb 11.4 Hct 36.7 MCV 86 MCH 27 L MCHC 31 RDW 15.4 H Plt Count 298 Lymph # (Auto) Call Circuit Worker Add Manual Diff Complete Total Counted 200 Seg Neuts % (Manual) 65.0 Band Neutrophils % 8.5 Lymphocytes % (Manual) 21.5 Monocytes % (Manual) 5.0 Nucleated RBC % Not Reportable Seg Neutrophils # Man 22.3 H Band Neutrophils # 2.9 Lymphocytes # (Manual) 7.4 H Abs React Lymphs (Man) 0.0 Monocytes # (Manual) 1.7 H Eosinophils # (Manual) 0.0 Basophils # (Manual) 0.0 Metamyelocytes # 0.0 Myelocytes # 0.0 Promyelocytes # 0.0 Blast Cells # 0.0 WBC Morphology Not Reportable Hypersegmented Neuts Not Reportable Hyposegmented Neuts Not Reportable Hypogranular Neuts Not Reportable Smudge Cells Not Reportable Toxic Granulation Not Reportable Toxic Vacuolation Not Reportable Dohle Bodies Not Reportable Pelger-Huet Anomaly Not Reportable Latia Rods Not Reportable Platelet Estimate Consistent w auto Clumped Platelets Not Reportable Plt Clumps, EDTA Not Reportable Large Platelets Not Reportable Giant Platelets Not Reportable Platelet Satelliting Not Reportable Plt Morphology Comment Not Reportable RBC Morphology Not Reportable Dimorphic RBCs Not Reportable Polychromasia Not Reportable Hypochromasia Not Reportable Poikilocytosis Not Reportable Anisocytosis 1+ Microcytosis Not Reportable Macrocytosis Not Reportable Spherocytes Not Reportable Pappenheimer Bodies Not Reportable Sickle Cells Not Reportable Target Cells Not Reportable Tear Drop Cells Not Reportable Ovalocytes Not Reportable Helmet Cells Not Reportable [place] Bodies Not Reportable [place] Rings Not Reportable [place] Cells Not Reportable Bite Cells Not Reportable Crenated Cell Not Reportable Elliptocytes Not Reportable Acanthocytes (Spur) Not Reportable Rouleaux Not Reportable Hemoglobin C Crystals Not Reportable Schistocytes Not Reportable Malaria parasites Not Reportable [place]ebeto Bodies Not Reportable Hem Pathologist Commnt No PT 16.3 H INR 1.25 H APTT 49.1 H ABG pH 7.229 L POC ABG pCO2 50.1 H POC ABG pO2 69.4 L POC ABG HCO3 20.5 ABG O2 Saturation 90.2 POC ABG Base Excess -7.3 ABG Hemoglobin 14.2 ABG Oxyhemoglobin 88.9 L ABG Methemoglobin 0.3 ABG Potassium 3.0 L ABG Chloride 99.0 ABG Glucose 361 H Carboxyhemoglobin 1.1 FiO2 % 100.0 Sodium Potassium Chloride Carbon Dioxide Anion Gap BUN Creatinine Estimated GFR BUN/Creatinine Ratio Glucose Hemoglobin A1c Lactic Acid Calcium Magnesium Total Bilirubin AST ALT Alkaline Phosphatase Total Creatine Kinase CK-MB (CK-2) CK-MB (CK-2) Rel Index Troponin T NT-Pro-B Natriuret Pep Total Protein Albumin Albumin/Globulin Ratio Triglycerides Cholesterol LDL Cholesterol Direct HDL Cholesterol Cholesterol/HDL Ratio TSH Free T4 Arterial Blood Glucose 361 H Arterial Blood Ionized Calcium 4.3 L Blood Type Antibody Screen 11/09/20 11/09/20 11/09/20 01:43 01:43 01:43 WBC RBC Hgb Hct MCV MCH MCHC RDW Plt Count Lymph # (Auto) Add Manual Diff Total Counted Seg Neuts % (Manual) Band Neutrophils % Lymphocytes % (Manual) Monocytes % (Manual) Nucleated RBC % Seg Neutrophils # Man Band Neutrophils # Lymphocytes # (Manual) Abs React Lymphs (Man) Monocytes # (Manual) Eosinophils # (Manual) Basophils # (Manual) Metamyelocytes # Myelocytes # Promyelocytes # Blast Cells # WBC Morphology Hypersegmented Neuts Hyposegmented Neuts Hypogranular Neuts Smudge Cells Toxic Granulation Toxic Vacuolation Dohle Bodies Pelger-Huet Anomaly Latia Rods Platelet Estimate Clumped Platelets Plt Clumps, EDTA Large Platelets Giant Platelets Platelet Satelliting Plt Morphology Comment RBC Morphology Dimorphic RBCs Polychromasia Hypochromasia Poikilocytosis Anisocytosis Microcytosis Macrocytosis Spherocytes Pappenheimer Bodies Sickle Cells Target Cells Tear Drop Cells Ovalocytes Helmet Cells [place] Bodies [place] Rings [place] Cells Bite Cells Crenated Cell Elliptocytes Acanthocytes (Spur) Rouleaux Hemoglobin C Crystals Schistocytes Malaria parasites [place]eb[place] Bodies Hem Pathologist Commnt PT INR APTT ABG pH POC ABG pCO2 POC ABG pO2 POC ABG HCO3 ABG O2 Saturation POC ABG Base Excess ABG Hemoglobin ABG Oxyhemoglobin ABG Methemoglobin ABG Potassium ABG Chloride ABG Glucose Carboxyhemoglobin FiO2 % Sodium 138 Potassium 3.7 Chloride 99.3 Carbon Dioxide 15 L Anion Gap 27 BUN 5 L Creatinine 0.8 Estimated GFR > 60 BUN/Creatinine Ratio 6 Glucose 260 H Hemoglobin A1c Lactic Acid Calcium 7.1 L Magnesium 1.40 L Total Bilirubin 0.30 AST 267 H ALT 114 H Alkaline Phosphatase 258 H Total Creatine Kinase 117 CK-MB (CK-2) 4.1 H CK-MB (CK-2) Rel Index 3.5 Troponin T 0.043 H NT-Pro-B Natriuret Pep 3038 H Total Protein 5.3 L Albumin 2.7 L Albumin/Globulin Ratio 1.0 Triglycerides 168 H Cholesterol 86 LDL Cholesterol Direct 41 L HDL Cholesterol 23 L Cholesterol/HDL Ratio 3.73 TSH 36.290 H Free T4 0.89 Arterial Blood Glucose Arterial Blood Ionized Calcium Blood Type A NEGATIVE Antibody Screen Negative 11/09/20 11/09/20 11/09/20 05:31 05:31 05:31 WBC RBC Hgb 15.3 H D Hct 47.2 H D MCV MCH MCHC RDW Plt Count 411 Lymph # (Auto) Add Manual Diff Total Counted Seg Neuts % (Manual) Band Neutrophils % Lymphocytes % (Manual) Monocytes % (Manual) Nucleated RBC % Seg Neutrophils # Man Band Neutrophils # Lymphocytes # (Manual) Abs React Lymphs (Man) Monocytes # (Manual) Eosinophils # (Manual) Basophils # (Manual) Metamyelocytes # Myelocytes # Promyelocytes # Blast Cells # WBC Morphology Hypersegmented Neuts Hyposegmented Neuts Hypogranular Neuts Smudge Cells Toxic Granulation Toxic Vacuolation Dohle Bodies Pelger-Huet Anomaly Latia Rods Platelet Estimate Clumped Platelets Plt Clumps, EDTA Large Platelets Giant Platelets Platelet Satelliting Plt Morphology Comment RBC Morphology Dimorphic RBCs Polychromasia Hypochromasia Poikilocytosis Anisocytosis Microcytosis Macrocytosis Spherocytes Pappenheimer Bodies Sickle Cells Target Cells Tear Drop Cells Ovalocytes Helmet Cells [place] Bodies [place] Rings [place] Cells Bite Cells Crenated Cell Elliptocytes Acanthocytes (Spur) Rouleaux Hemoglobin C Crystals Schistocytes Malaria parasites [place]eb[place] Bodies Hem Pathologist Commnt PT INR APTT ABG pH POC ABG pCO2 POC ABG pO2 POC ABG HCO3 ABG O2 Saturation POC ABG Base Excess ABG Hemoglobin ABG Oxyhemoglobin ABG Methemoglobin ABG Potassium ABG Chloride ABG Glucose Carboxyhemoglobin FiO2 % Sodium Potassium Chloride Carbon Dioxide Anion Gap BUN Creatinine Estimated GFR BUN/Creatinine Ratio Glucose Hemoglobin A1c 5.2 Lactic Acid 4.90 H* Calcium Magnesium Total Bilirubin AST ALT Alkaline Phosphatase Total Creatine Kinase CK-MB (CK-2) CK-MB (CK-2) Rel Index Troponin T NT-Pro-B Natriuret Pep Total Protein Albumin Albumin/Globulin Ratio Triglycerides Cholesterol LDL Cholesterol Direct HDL Cholesterol Cholesterol/HDL Ratio TSH Free T4 Arterial Blood Glucose Arterial Blood Ionized Calcium Blood Type Antibody Screen 11/09/20 05:31 WBC RBC Hgb Hct MCV MCH MCHC RDW Plt Count Lymph # (Auto) Add Manual Diff Total Counted Seg Neuts % (Manual) Band Neutrophils % Lymphocytes % (Manual) Monocytes % (Manual) Nucleated RBC % Seg Neutrophils # Man Band Neutrophils # Lymphocytes # (Manual) Abs React Lymphs (Man) Monocytes # (Manual) Eosinophils # (Manual) Basophils # (Manual) Metamyelocytes # Myelocytes # Promyelocytes # Blast Cells # WBC Morphology Hypersegmented Neuts Hyposegmented Neuts Hypogranular Neuts Smudge Cells Toxic Granulation Toxic Vacuolation Dohle Bodies Pelger-Huet Anomaly Latia Rods Platelet Estimate Clumped Platelets Plt Clumps, EDTA Large Platelets Giant Platelets Platelet Satelliting Plt Morphology Comment RBC Morphology Dimorphic RBCs Polychromasia Hypochromasia Poikilocytosis Anisocytosis Microcytosis Macrocytosis Spherocytes Pappenheimer Bodies Sickle Cells Target Cells Tear Drop Cells Ovalocytes Helmet Cells [place] Bodies [place] Rings [place] Cells Bite Cells Crenated Cell Elliptocytes Acanthocytes (Spur) Rouleaux Hemoglobin C Crystals Schistocytes Malaria parasites Bebeto Bodies Hem Pathologist Commnt PT 15.0 H INR 1.12 APTT 32.1 ABG pH POC ABG pCO2 POC ABG pO2 POC ABG HCO3 ABG O2 Saturation POC ABG Base Excess ABG Hemoglobin ABG Oxyhemoglobin ABG Methemoglobin ABG Potassium ABG Chloride ABG Glucose Carboxyhemoglobin FiO2 % Sodium Potassium Chloride Carbon Dioxide Anion Gap BUN Creatinine Estimated GFR BUN/Creatinine Ratio Glucose Hemoglobin A1c Lactic Acid Calcium Magnesium Total Bilirubin AST ALT Alkaline Phosphatase Total Creatine Kinase CK-MB (CK-2) CK-MB (CK-2) Rel Index Troponin T NT-Pro-B Natriuret Pep Total Protein Albumin Albumin/Globulin Ratio Triglycerides Cholesterol LDL Cholesterol Direct HDL Cholesterol Cholesterol/HDL Ratio TSH Free T4 Arterial Blood Glucose Arterial Blood Ionized Calcium Blood Type Antibody Screen Assessment and Plan - Patient Problems (1) Elevated liver enzymes Current Visit: Yes Status: Acute Plan to address problem: - Given the elevated WBC and lactic acid and cardiac arrest at home, highly suspicious of acute ischemic liver injury/shock liver. - Will send routine studies and continue supportive care with IV fluids/maintain adequate BP. - Will await Cards eval and recommendations. - At present, no contraindications to amiodarone or other meds.
[2020-11-09] MEDS: SODIUM CHLORIDE 0.9% 1000 ML 1,000 ML IV SCH ×3 (09:49→23:06)
[2020-11-09] MEDS ORDERED: LIP THERAPY VASELINE TP PRN (10:00)
[2020-11-09] MEDS ORDERED: MINERAL OIL/PETROLATUM, WHITE OPHTH OINT 3.5 GM OU PRN (10:00)
[2020-11-09] MEDS ORDERED: fentaNYL DRIP Premix 2,000 MCG/100 ML BAG IV SCH (10:00)
--- NOTE | 2020-11-09 10:11 | Progress Note ---
Assessment and Plan Assessment and plan: S/p cardiopulmonary arrest. Left apical pneumothorax Hypomagnesemia Elevated LFTs Sepsis Probable aspiration pneumonia. 11/09/2020. CTA of the chest reveals trace left apical pneumothorax, faint pat mauricio parenchymal densities involving the bilateral upper lobes. Findings are nonspecific and considerations include infectious or inflammatory process, embolic phenomena or neoplasm. No evidence of pulmonary embolism. Await Surgery consultation for PTX. Obstetric Assistant has also been consulted by the ER physician for the cardiac arrhythmia. Continue heparin drip. Pt. with mechanical ventilation AC mode rate 28, tidal volume 450, FiO2 100% and PEEP of 8. The high probability of a clinically significant, sudden or life threatening deterioration of the [neurological, pulmonary and cardiac] system(s) required my full and direct attention, intervention and personal management. The aggregate critical care time was [32] minutes. This time is in addition to time spent performing reported procedures but includes the following: [x] Data Review and interpretation [x] Patient assessment and monitoring of vital signs [x] Documentation [x] Medication orders and management History Interval history: The patient is intubated/sedated; no family members available. History is per the chart and staff. She was brought to the ER after cardiac arrest at home, and was in asystole in the ER. She was intubated and resuscitated, and transferred to the ICU. CTA was negative for a PE. Cardiac w/u in progress. She was noted to have a port present (hx of breast cancer), a WBC of 35K, and elevated LFTs. Since admit to the ICU, she has been non-responsive with myoclonic jerking (despite no current sedation); a CT shows no acute intracranial trauma. No new issues overnight Hospitalist Physical - Constitutional Vitals: Temp Pulse Resp BP Pulse Ox 98.7 F 111 H 28 H 152/98 92 11/09/20 08:00 11/09/20 07:41 11/09/20 06:16 11/09/20 07:41 11/09/20 06:16 General appearance: Present: severe distress, other (Orally intubated on mechani noy ventilation) - EENT Eyes: Present: PERRL, EOM intact ENT: hearing intact, clear oral mucosa, dentition normal - Neck Neck: Present: supple, normal ROM - Respiratory Respiratory effort: normal Respiratory: bilateral: CTA - Cardiovascular Rhythm: regular Heart Sounds: Present: S1 & S2. Absent: gallop, rub - Extremities Extremities: no ischemia, No edema, Full ROM - Abdominal General gastrointestinal: soft, non-tender, non-distended, normal bowel sounds - Integumentary Integumentary: Present: clear, warm, dry - Neurologic Neurologic: CNII-XII intact, moves all extremities HEART Score - HEART Score Troponin: Troponin T 0.043 ng/mL (0.00-0.029) H 11/09/20 01:43 Results - Labs CBC & Chem 7: 11/09/20 05:31 11/09/20 01:43 Labs: Laboratory Last Values WBC 34.3 K/mm3 (4.5-11.0) H 11/09/20 01:43 RBC 4.25 M/mm3 (3.65-5.03) 11/09/20 01:43 Hgb 15.3 gm/dl (10.1-14.3) H D 11/09/20 05:31 Hct 47.2 % (30.3-42.9) H D 11/09/20 05:31 MCV 86 fl (79-97) 11/09/20 01:43 MCH 27 pg (28-32) L 11/09/20 01:43 MCHC 31 % (30-34) 11/09/20 01:43 RDW 15.4 % (13.2-15.2) H 11/09/20 01:43 Plt Count 411 K/mm3 (140-440) 11/09/20 05:31 Lymph # (Auto) Tiger Machine Operator 11/09/20 01:43 Add Manual Diff Complete 11/09/20 01:43 Total Counted 200 11/09/20 01:43 Seg Neuts % (Manual) 65.0 % (40.0-70.0) 11/09/20 01:43 Band Neutrophils % 8.5 % 11/09/20 01:43 Lymphocytes % (Manual) 21.5 % (13.4-35.0) 11/09/20 01:43 Monocytes % (Manual) 5.0 % (0.0-7.3) 11/09/20 01:43 Nucleated RBC % Not Reportable 11/09/20 01:43 Seg Neutrophils # Man 22.3 K/mm3 (1.8-7.7) H 11/09/20 01:43 Band Neutrophils # 2.9 K/mm3 11/09/20 01:43 Lymphocytes # (Manual) 7.4 K/mm3 (1.2-5.4) H 11/09/20 01:43 Abs React Lymphs (Man) 0.0 K/mm3 11/09/20 01:43 Monocytes # (Manual) 1.7 K/mm3 (0.0-0.8) H 11/09/20 01:43 Eosinophils # (Manual) 0.0 K/mm3 (0.0-0.4) 11/09/20 01:43 Basophils # (Manual) 0.0 K/mm3 (0.0-0.1) 11/09/20 01:43 Metamyelocytes # 0.0 K/mm3 11/09/20 01:43 Myelocytes # 0.0 K/mm3 11/09/20 01:43 Promyelocytes # 0.0 K/mm3 11/09/20 01:43 Blast Cells # 0.0 K/mm3 11/09/20 01:43 WBC Morphology Not Reportable 11/09/20 01:43 Hypersegmented Neuts Not Reportable 11/09/20 01:43 Hyposegmented Neuts Not Reportable 11/09/20 01:43 Hypogranular Neuts Not Reportable 11/09/20 01:43 Smudge Cells Not Reportable 11/09/20 01:43 Toxic Granulation Not Reportable 11/09/20 01:43 Toxic Vacuolation Not Reportable 11/09/20 01:43 Dohle Bodies Not Reportable 11/09/20 01:43 Pelger-Huet Anomaly Not Reportable 11/09/20 01:43 Latia Rods Not Reportable 11/09/20 01:43 Platelet Estimate Consistent w auto 11/09/20 01:43 Clumped Platelets Not Reportable 11/09/20 01:43 Plt Clumps, EDTA Not Reportable 11/09/20 01:43 Large Platelets Not Reportable 11/09/20 01:43 Giant Platelets Not Reportable 11/09/20 01:43 Platelet Satelliting Not Reportable 11/09/20 01:43 Plt Morphology Comment Not Reportable 11/09/20 01:43 RBC Morphology Not Reportable 11/09/20 01:43 Dimorphic RBCs Not Reportable 11/09/20 01:43 Polychromasia Not Reportable 11/09/20 01:43 Hypochromasia Not Reportable 11/09/20 01:43 Poikilocytosis Not Reportable 11/09/20 01:43 Anisocytosis 1+ 11/09/20 01:43 Microcytosis Not Reportable 11/09/20 01:43 Macrocytosis Not Reportable 11/09/20 01:43 Spherocytes Not Reportable 11/09/20 01:43 Pappenheimer Bodies Not Reportable 11/09/20 01:43 Sickle Cells Not Reportable 11/09/20 01:43 Target Cells Not Reportable 11/09/20 01:43 Tear Drop Cells Not Reportable 11/09/20 01:43 Ovalocytes Not Reportable 11/09/20 01:43 Helmet Cells Not Reportable 11/09/20 01:43 Trevizo-Leslie Bodies Not Reportable 11/09/20 01:43 [place] Rings Not Reportable 11/09/20 01:43 [place] Cells Not Reportable 11/09/20 01:43 Bite Cells Not Reportable 11/09/20 01:43 Crenated Cell Not Reportable 11/09/20 01:43 Elliptocytes Not Reportable 11/09/20 01:43 Acanthocytes (Spur) Not Reportable 11/09/20 01:43 Rouleaux Not Reportable 11/09/20 01:43 Hemoglobin C Crystals Not Reportable 11/09/20 01:43 Schistocytes Not Reportable 11/09/20 01:43 Malaria parasites Not Reportable 11/09/20 01:43 Bebeto Bodies Not Reportable 11/09/20 01:43 Hem Pathologist Commnt No 11/09/20 01:43 PT 15.0 Sec. (12.2-14.9) H 11/09/20 05:31 INR 1.12 (0.87-1.13) 11/09/20 05:31 APTT 32.1 Sec. (24.2-36.6) 11/09/20 05:31 ABG pH 7.229 (7.320-7.450) L 11/09/20 01:39 POC ABG pCO2 50.1 mmHg (32.0-48.0) H 11/09/20 01:39 POC ABG pO2 69.4 mmHg (83-108) L 11/09/20 01:39 POC ABG HCO3 20.5 11/09/20 01:39 ABG O2 Saturation 90.2 (0-100) 11/09/20 01:39 POC ABG Base Excess -7.3 11/09/20 01:39 ABG Hemoglobin 14.2 (12.0-17.5) 11/09/20 01:39 ABG Oxyhemoglobin 88.9 (94-98) L 11/09/20 01:39 ABG Methemoglobin 0.3 (0.0-1.5) 11/09/20 01:39 ABG Potassium 3.0 mmol/L (3.40-4.50) L 11/09/20 01:39 ABG Chloride 99.0 mmol/L (98-107) 11/09/20 01:39 ABG Glucose 361 mg/dL (65-95) H 11/09/20 01:39 Carboxyhemoglobin 1.1 (0.5-1.5) 11/09/20 01:39 FiO2 % 100.0 11/09/20 01:39 Sodium 138 mmol/L (137-145) 11/09/20 01:43 Potassium 3.7 mmol/L (3.6-5.0) 11/09/20 01:43 Chloride 99.3 mmol/L (98-107) 11/09/20 01:43 Carbon Dioxide 15 mmol/L (22-30) L 11/09/20 01:43 Anion Gap 27 mmol/L 11/09/20 01:43 BUN 5 mg/dL (7-17) L 11/09/20 01:43 Creatinine 0.8 mg/dL (0.6-1.2) 11/09/20 01:43 Estimated GFR > 60 ml/min 11/09/20 01:43 BUN/Creatinine Ratio 6 % 11/09/20 01:43 Glucose 260 mg/dL (65-100) H 11/09/20 01:43 Hemoglobin A1c 5.2 % (4-6) 11/09/20 05:31 Lactic Acid 4.90 mmol/L (0.7-2.0) H* 11/09/20 05:31 Calcium 7.1 mg/dL (8.4-10.2) L 11/09/20 01:43 Magnesium 1.40 mg/dL (1.7-2.3) L 11/09/20 01:43 Total Bilirubin 0.30 mg/dL (0.1-1.2) 11/09/20 01:43 AST 267 units/L (5-40) H 11/09/20 01:43 ALT 114 units/L (7-56) H 11/09/20 01:43 Alkaline Phosphatase 258 units/L (35-129) H 11/09/20 01:43 Total Creatine Kinase 117 units/L (30-135) 11/09/20 01:43 CK-MB (CK-2) 4.1 ng/mL (0.0-4.0) H 11/09/20 01:43 CK-MB (CK-2) Rel Index 3.5 (0-4) 11/09/20 01:43 Troponin T 0.043 ng/mL (0.00-0.029) H 11/09/20 01:43 NT-Pro-B Natriuret Pep 3038 pg/mL (0-900) H 11/09/20 01:43 Total Protein 5.3 g/dL (6.3-8.2) L 11/09/20 01:43 Albumin 2.7 g/dL (3.9-5) L 11/09/20 01:43 Albumin/Globulin Ratio 1.0 % 11/09/20 01:43 Triglycerides 168 mg/dL (2-149) H 11/09/20 01:43 Cholesterol 86 mg/dL (50-199) 11/09/20 01:43 LDL Cholesterol Direct 41 mg/dL (50-130) L 11/09/20 01:43 HDL Cholesterol 23 mg/dL (40-59) L 11/09/20 01:43 Cholesterol/HDL Ratio 3.73 % 11/09/20 01:43 TSH 36.290 mlU/mL (0.270-4.200) H 11/09/20 01:43 Free T4 0.89 ng/dL (0.76-1.46) 11/09/20 01:43 Arterial Blood Glucose 361 mg/dL (65-95) H 11/09/20 01:39 Arterial Blood Ionized Calcium 4.3 mg/dL (4.6-5.3) L 11/09/20 01:39 Blood Type A NEGATIVE 11/09/20 01:43 Antibody Screen Negative 11/09/20 01:43 Active Medications - Current Medications Current Medications: Generic Name Dose Route Start Last Admin Trade Name Freq PRN Reason Stop Dose Admin Dextrose 0 ml 11/09/20 05:14 Dextrose 50% In Water (25gm) 50 Ml Syringe IV Q30MIN PRN Hypoglycemia Protocol Fentanyl 50 mcg 11/09/20 09:04 Fentanyl 100 Mcg/2 Ml Inj IV 11/10/20 09:03 Q10MIN PRN ANALGESIA Heparin Sodium (Porcine) 4,100 unit 11/09/20 05:28 Heparin 10,000 Units/10 Ml Vial 40 unit/kg (4100 unit) IV Q6H PRN Anti-Xa Assay<0.1 units/ml Hydrophilic Ointment 1 applic 11/09/20 10:00 Lip Therapy Vaseline TP Q2HR PRN Dry Lips Amiodarone HCl 900 mg/ 500 mls @ 33.333 mls/hr 11/09/20 05:00 11/09/20 04:56 Dextrose IV 1 mg/min DIRECT TROY 33.333 mls/hr Administration Protocol 1 MG/MIN Sodium Chloride 1,000 mls @ 125 mls/hr 11/09/20 05:15 11/09/20 09:49 Nacl 0.9% 1000 Ml IV 125 mls/hr DIRECT TROY Administration Heparin Sodium/Sodium Chloride 25,000 unit in 500 mls @ 20 mls/hr 11/09/20 06:00 11/09/20 08:59 Heparin/ 0.45% Nacl-25,000 Unit/500 Ml IV 1,000 units/hr TITRATE TROY 20 mls/hr Administration Protocol 1,000 UNITS/HR Piperacillin Sod/Tazobactam Sod 4.5 gm in 100 mls @ 200 mls/hr 11/09/20 06:00 11/09/20 08:27 Zosyn/Ns 4.5gm/100ml IV Not Given Q8H TROY Protocol Fentanyl Citrate 2,000 mcg in 100 mls @ 5.15 mls/hr 11/09/20 10:00 Fentanyl Drip Premix IV TITR TROY Protocol 1 MCG/KG/HR Propofol 1,000 mg in 100 mls @ 3.09 mls/hr 11/09/20 10:00 11/09/20 09:33 Diprivan 10 Mg/Ml IV 5 mcg/kg/min TITR TROY 3.09 mls/hr Administration Protocol 5 MCG/KG/MIN Norepinephrine 4 mg in 250 mls @ 7.5 mls/hr 11/09/20 10:00 Levophed Drip 4 Mg/Ns 250 Ml IV TITR TROY Protocol 2 MCG/MIN Morphine Sulfate 2 mg 11/09/20 05:14 Morphine 2 Mg/1 Ml Inj IV Q4H PRN Pain, Moderate (4-6) Multi-Ingred Cream/Lotion/Oil/Oint 1 applic 11/09/20 10:00 Mineral Oil/Petrolatum, White Ophth Oint 3.5 Gm OU Q4HR PRN Dry Eye(s) Ondansetron HCl 4 mg 11/09/20 05:14 Ondansetron 4 Mg/2 Ml Inj IV Q8H PRN Nausea And Vomiting Sodium Chloride 10 ml 11/09/20 10:00 11/09/20 09:45 Sodium Chloride 0.9% 10 Ml Flush Syringe IV 10 ml BID TROY Administration Sodium Chloride 10 ml 11/09/20 05:14 Sodium Chloride 0.9% 10 Ml Flush Syringe IV PRN PRN LINE FLUSH Nutrition/Malnutrition Assess - Dietary Evaluation Nutrition/Malnutrition Findings: Nutrition Notes Start: 11/09/20 08:19 Freq: Status: Active Protocol: Document 11/09/20 08:19 CW (Rec: 11/09/20 08:36 CW [id number]) Nutrition Notes Need for Assessment generated from: Education Initial or Follow up Brief Note Other Pertinent Diagnosis MO, h/o BrCA Labs/Tests BG 260 HgbA1c 5.2 TG 168 Pertinent Medications NS 1L Height 5 ft 4 in Weight 103 kg [place] Body Weight (kg) 54.54 BMI 38.9 Weight Status Obese Subjective/Other Information MD consult for diet education. Diet education not appropriate at this time. Pt mechanically ventilated. Recommend initiating Glucerna when medically feasible. Monitor blood sugars and adjust TF accordingly. Burn Absent Trauma Absent Difficulty In Swallowing Current % PO Negligible #1 Nutrition Diagnosis Inadequate oral intake Etiology pt mechanically ventilated As Evidenced by Signs and Symptoms pt unable to consume via PO at this time Is patient on ventilator? Yes Is Patient Ambulatory and/or Out of Bed No REE-([facility]-confined to bed) 1924.236 Kcal/Kg value to use for calculation 15 Approximate Energy Requirements Using 1545 kcal/Kg Calculation Used for Recommendations Kcal/kg Additional Notes protein needs: >109g (>2g/ kgIBW) fluid needs: 1 ml/kcal or per MD order Nutrition Intervention Change Diet Order: Initiate TF regimen Nutrition Support: Glucerna 1.2 at 55 ml/hr with a free water flush of 100 ml q4h. Kcal 1,584 Protein (gm) 79 Fluid (mL) 1,063 Goal #1 Initiate nutrition support Anticipated Discharge Needs: unable to determine at this time Follow-Up By: 11/11/20 Additional Comments F/U for TF consult; extubation ; monitor BG levels
[2020-11-09 10:19] LABS: ABG Base Excess -7.1 mmol/L (-2.0-3.0); ABG HCO3 18.2 mmol/L (20.0-26.0); ABG Methemoglobin 0.5 % (0.0-1.5); ABG Oxygen Saturation 98.8 % (95.0-99.0); ABG PCO2 36.4 mm Hg; ABG PH 7.317 pH Units (7.350-7.450); ABG PO2 154.8 mm Hg (80.0-90.0)
--- NOTE | 2020-11-09 13:39 | Consultation ---
History of Present Illness Consult date: 11/09/20 Requesting physician: PERRY ROJAS Reason for consult: other (Cardiac Arrest with ROSC) History of present illness: PULMONARY/CCM CONSULT NOTE (Full dictation # [id number]) Please see dictated notes for full details Past History Past Medical History: other (Breast Ca., H/O Cellulitis) Past Surgical History: Other (Port a cath) Social history: other (Unknown) Family history: other (Unknown) Medications and Allergies Allergies Allergy/AdvReac Type Severity Reaction Status Date / Time Unable to Assess Allergy Unverified 11/09/20 01:25 Active Meds: Active Medications Dextrose (Dextrose 50% In Water (25gm) 50 Ml Syringe) 0 ml IV Q30MIN PRN; Protocol PRN Reason: Hypoglycemia Fentanyl (Fentanyl 100 Mcg/2 Ml Inj) 50 mcg IV Q10MIN PRN PRN Reason: ANALGESIA Stop: 11/10/20 09:03 Heparin Sodium (Porcine) (Heparin 10,000 Units/10 Ml Vial) 4,100 unit 40 unit/kg (4100 unit) IV Q6H PRN PRN Reason: Anti-Xa Assay<0.1 units/ml Hydrophilic Ointment (Lip Therapy Vaseline) 1 applic TP Q2HR PRN PRN Reason: Dry Lips Amiodarone HCl 900 mg/ (Dextrose) 500 mls @ 33.333 mls/hr IV DIRECT TROY; Protocol Last Admin: 11/09/20 04:56 Dose: 1 mg/min, 33.333 mls/hr Documented by: Sodium Chloride (Nacl 0.9% 1000 Ml) 1,000 mls @ 125 mls/hr IV DIRECT TROY Last Admin: 11/09/20 09:49 Dose: 125 mls/hr Documented by: Heparin Sodium/Sodium Chloride (Heparin/ 0.45% Nacl-25,000 Unit/500 Ml) 25,000 unit in 500 mls @ 20 mls/hr IV TITRATE TROY; Protocol Last Admin: 11/09/20 08:59 Dose: 1,000 units/hr, 20 mls/hr Documented by: Piperacillin Sod/Tazobactam Sod (Zosyn/Ns 4.5gm/100ml) 4.5 gm in 100 mls @ 200 mls/hr IV Q8H TROY; Protocol Last Admin: 11/09/20 08:27 Dose: Not Given Documented by: Fentanyl Citrate (Fentanyl Drip Premix) 2,000 mcg in 100 mls @ 5.15 mls/hr IV TITR TROY; Protocol Propofol (Diprivan 10 Mg/Ml) 1,000 mg in 100 mls @ 3.09 mls/hr IV TITR TROY; Protocol Last Titration: 11/09/20 11:30 Dose: 35 mcg/kg/min, 21.63 mls/hr Documented by: Norepinephrine (Levophed Drip 4 Mg/Ns 250 Ml) 4 mg in 250 mls @ 7.5 mls/hr IV TITR TROY; Protocol Morphine Sulfate (Morphine 2 Mg/1 Ml Inj) 2 mg IV Q4H PRN PRN Reason: Pain, Moderate (4-6) Multi-Ingred Cream/Lotion/Oil/Oint (Mineral Oil/Petrolatum, White Ophth Oint 3.5 Gm) 1 applic OU Q4HR PRN PRN Reason: Dry Eye(s) Ondansetron HCl (Ondansetron 4 Mg/2 Ml Inj) 4 mg IV Q8H PRN PRN Reason: Nausea And Vomiting Sodium Chloride (Sodium Chloride 0.9% 10 Ml Flush Syringe) 10 ml IV BID TROY Last Admin: 11/09/20 09:45 Dose: 10 ml Documented by: Sodium Chloride (Sodium Chloride 0.9% 10 Ml Flush Syringe) 10 ml IV PRN PRN PRN Reason: LINE FLUSH Physical Examination Vital signs: Vital Signs Pulse Resp 79 15 11/09/20 01:22 11/09/20 01:22 Results - Laboratory Findings CBC and BMP: 11/09/20 05:31 11/09/20 01:43 ABG ABG pH 7.317 pH Units (7.350-7.450) L 11/09/20 09:01 POC ABG pCO2 50.1 mmHg (32.0-48.0) H 11/09/20 01:39 ABG pCO2 36.4 mm Hg 11/09/20 09:01 POC ABG pO2 69.4 mmHg (83-108) L 11/09/20 01:39 ABG pO2 154.8 mm Hg (80.0-90.0) H 11/09/20 09:01 POC ABG HCO3 20.5 11/09/20 01:39 ABG O2 Saturation 98.8 % (95.0-99.0) 11/09/20 09:01 PT/INR, D-dimer PT 15.0 Sec. (12.2-14.9) H 11/09/20 05:31 INR 1.12 (0.87-1.13) 11/09/20 05:31 Abnormal lab findings: Abnormal Labs 11/09/20 11/09/20 11/09/20 01:39 01:43 01:43 WBC 34.3 H Hgb Hct MCH 27 L RDW 15.4 H Seg Neutrophils # Man 22.3 H Lymphocytes # (Manual) 7.4 H Monocytes # (Manual) 1.7 H PT 16.3 H INR 1.25 H APTT 49.1 H ABG pH 7.229 L POC ABG pCO2 50.1 H POC ABG pO2 69.4 L ABG pO2 ABG HCO3 ABG Base Excess ABG Oxyhemoglobin 88.9 L ABG Potassium 3.0 L ABG Glucose 361 H Carbon Dioxide BUN Glucose Lactic Acid Calcium Magnesium AST ALT Alkaline Phosphatase CK-MB (CK-2) Troponin T NT-Pro-B Natriuret Pep Total Protein Albumin Triglycerides LDL Cholesterol Direct HDL Cholesterol TSH Arterial Blood Glucose 361 H Arterial Blood Ionized Calcium 4.3 L 11/09/20 11/09/20 11/09/20 01:43 01:43 05:31 WBC Hgb Hct MCH RDW Seg Neutrophils # Man Lymphocytes # (Manual) Monocytes # (Manual) PT INR APTT ABG pH POC ABG pCO2 POC ABG pO2 ABG pO2 ABG HCO3 ABG Base Excess ABG Oxyhemoglobin ABG Potassium ABG Glucose Carbon Dioxide 15 L BUN 5 L Glucose 260 H Lactic Acid 4.90 H* Calcium 7.1 L Magnesium 1.40 L AST 267 H ALT 114 H Alkaline Phosphatase 258 H CK-MB (CK-2) 4.1 H Troponin T 0.043 H NT-Pro-B Natriuret Pep 3038 H Total Protein 5.3 L Albumin 2.7 L Triglycerides 168 H LDL Cholesterol Direct 41 L HDL Cholesterol 23 L TSH 36.290 H Arterial Blood Glucose Arterial Blood Ionized Calcium 11/09/20 11/09/20 11/09/20 05:31 05:31 09:01 WBC Hgb 15.3 H D Hct 47.2 H D MCH RDW Seg Neutrophils # Man Lymphocytes # (Manual) Monocytes # (Manual) PT 15.0 H INR APTT ABG pH 7.317 L POC ABG pCO2 POC ABG pO2 ABG pO2 154.8 H ABG HCO3 18.2 L ABG Base Excess -7.1 L ABG Oxyhemoglobin ABG Potassium ABG Glucose Carbon Dioxide BUN Glucose Lactic Acid Calcium Magnesium AST ALT Alkaline Phosphatase CK-MB (CK-2) Troponin T NT-Pro-B Natriuret Pep Total Protein Albumin Triglycerides LDL Cholesterol Direct HDL Cholesterol TSH Arterial Blood Glucose Arterial Blood Ionized Calcium
[2020-11-09] MEDS ORDERED: VANCOMYCIN/NS 1 GM/250 ML 1 GM/250 ML BAG IV ONE (15:12)
--- NOTE | 2020-11-09 16:08 | Consultation ---
History of Present Illness Consult date: 11/09/20 Reason for consult: chest tube - History of present illness History of present illness: 55 year old female presented this morning to ED in cardiac arrest. She was resuscitated and placed on vent. chest CT showed small apical left pneumothorax. Surgery being consulted for possible chest tube placement. Past History Past Medical History: other (Breast Ca., H/O Cellulitis) Past Surgical History: Other (Port a cath) Social history: other (Unknown) Family history: other (Unknown) Medications and Allergies Allergies Allergy/AdvReac Type Severity Reaction Status Date / Time Unable to Assess Allergy Unverified 11/09/20 01:25 Active Meds: Active Medications Dextrose (Dextrose 50% In Water (25gm) 50 Ml Syringe) 0 ml IV Q30MIN PRN; Tayla col PRN Reason: Hypoglycemia Famotidine (Famotidine 20 Mg/2 Ml Inj) 20 mg IV BID TROY Fentanyl (Fentanyl 100 Mcg/2 Ml Inj) 50 mcg IV Q10MIN PRN PRN Reason: ANALGESIA Stop: 11/10/20 09:03 Heparin Sodium (Porcine) (Heparin 10,000 Units/10 Ml Vial) 4,100 unit 40 unit/kg (4100 unit) IV Q6H PRN PRN Reason: Anti-Xa Assay<0.1 units/ml Hydrophilic Ointment (Lip Therapy Vaseline) 1 applic TP Q2HR PRN PRN Reason: Dry Lips Amiodarone HCl 900 mg/ (Dextrose) 500 mls @ 33.333 mls/hr IV DIRECT TROY; Protocol Last Admin: 11/09/20 04:56 Dose: 1 mg/min, 33.333 mls/hr Documented by: Sodium Chloride (Nacl 0.9% 1000 Ml) 1,000 mls @ 125 mls/hr IV DIRECT TROY Last Admin: 11/09/20 09:49 Dose: 125 mls/hr Documented by: Heparin Sodium/Sodium Chloride (Heparin/ 0.45% Nacl-25,000 Unit/500 Ml) 25,000 unit in 500 mls @ 20 mls/hr IV TITRATE TROY; Protocol Last Admin: 11/09/20 08:59 Dose: 1,000 units/hr, 20 mls/hr Documented by: Piperacillin Sod/Tazobactam Sod (Zosyn/Ns 4.5gm/100ml) 4.5 gm in 100 mls @ 200 mls/hr IV Q8H TROY; Protocol Last Admin: 11/09/20 15:02 Dose: 200 mls/hr Documented by: Fentanyl Citrate (Fentanyl Drip Premix) 2,000 mcg in 100 mls @ 5.15 mls/hr IV TITR TROY; Protocol Last Admin: 11/09/20 14:59 Dose: 1 mcg/kg/hr, 5.15 mls/hr Documented by: Propofol (Diprivan 10 Mg/Ml) 1,000 mg in 100 mls @ 3.09 mls/hr IV TITR TROY; Protocol Last Admin: 11/09/20 15:00 Dose: 35 mcg/kg/min, 21.63 mls/hr Documented by: Norepinephrine (Levophed Drip 4 Mg/Ns 250 Ml) 4 mg in 250 mls @ 7.5 mls/hr IV TITR TROY; Protocol Magnesium Sulfate (Magnesium Sulfate 2gm/50ml) 2 gm in 50 mls @ 25 mls/hr IV ONCE ONE Stop: 11/09/20 17:59 Vancomycin HCl 1,750 mg/ (Sodium Chloride) 535 mls @ 267.5 mls/hr IV Q12H TROY Morphine Sulfate (Morphine 2 Mg/1 Ml Inj) 2 mg IV Q4H PRN PRN Reason: Pain, Moderate (4-6) Multi-Ingred Cream/Lotion/Oil/Oint (Mineral Oil/Petrolatum, White Ophth Oint 3.5 Gm) 1 applic OU Q4HR PRN PRN Reason: Dry Eye(s) Ondansetron HCl (Ondansetron 4 Mg/2 Ml Inj) 4 mg IV Q8H PRN PRN Reason: Nausea And Vomiting Senna/Docusate Sodium (Sennosides/Docusate Sodium 8.6/50 Mg Tab) 1 tab FEEDTUBE BID [facility] Sodium Chloride (Sodium Chloride 0.9% 10 Ml Flush Syringe) 10 ml IV BID [facility] Last Admin: 11/09/20 09:45 Dose: 10 ml Documented by: Sodium Chloride (Sodium Chloride 0.9% 10 Ml Flush Syringe) 10 ml IV PRN PRN PRN Reason: LINE FLUSH Review of Systems ROS unobtainable: due to endotracheal tube Exam Vital Signs Pulse Resp 79 15 11/09/20 01:22 11/09/20 01:22 - General physical appearance Positive: well developed, no distress, no pain - Respiratory Positive: normal expansion, clear to auscultation, other (intubated on vent PEEP8, 85% FiO2) - Cardiovascular Heart Sounds: Present: S1 & S2 Results - Labs 11/09/20 05:31 11/09/20 01:43 Abnormal lab results 11/09/20 11/09/20 11/09/20 Range/Units 01:39 01:43 01:43 WBC 34.3 H (4.5-11.0) K/mm3 Hgb (10.1-14.3) gm/dl Hct (30.3-42.9) % MCH 27 L (28-32) pg RDW 15.4 H (13.2-15.2) % Seg Neutrophils # Man 22.3 H (1.8-7.7) K/mm3 Lymphocytes # (Manual) 7.4 H (1.2-5.4) K/mm3 Monocytes # (Manual) 1.7 H (0.0-0.8) K/mm3 PT 16.3 H (12.2-14.9) Sec. INR 1.25 H (0.87-1.13) APTT 49.1 H (24.2-36.6) Sec. ABG pH 7.229 L (7.320-7.450) POC ABG pCO2 50.1 H (32.0-48.0) mmHg POC ABG pO2 69.4 L (83-108) mmHg ABG pO2 (80.0-90.0) mm Hg ABG HCO3 (20.0-26.0) mmol/L ABG Base Excess (-2.0-3.0) mmol/L ABG Oxyhemoglobin 88.9 L (94-98) ABG Potassium 3.0 L (3.40-4.50) mmol/L ABG Glucose 361 H (65-95) mg/dL Carbon Dioxide (22-30) mmol/L BUN (7-17) mg/dL Glucose (65-100) mg/dL POC Glucose (70-105) mg/dL Lactic Acid (0.7-2.0) mmol/L Calcium (8.4-10.2) mg/dL Magnesium (1.7-2.3) mg/dL AST (5-40) units/L ALT (7-56) units/L Alkaline Phosphatase (35-129) units/L CK-MB (CK-2) (0.0-4.0) ng/mL Troponin T (0.00-0.029) ng/mL NT-Pro-B Natriuret Pep (0-900) pg/mL Total Protein (6.3-8.2) g/dL Albumin (3.9-5) g/dL Triglycerides (2-149) mg/dL LDL Cholesterol Direct (50-130) mg/dL HDL Cholesterol (40-59) mg/dL TSH (0.270-4.200) mlU/mL Arterial Blood Glucose 361 H (65-95) mg/dL Arterial Blood Ionized Calcium 4.3 L (4.6-5.3) mg/dL 11/09/20 11/09/20 11/09/20 Range/Units 01:43 01:43 05:31 WBC (4.5-11.0) K/mm3 Hgb (10.1-14.3) gm/dl Hct (30.3-42.9) % MCH (28-32) pg RDW (13.2-15.2) % Seg Neutrophils # Man (1.8-7.7) K/mm3 Lymphocytes # (Manual) (1.2-5.4) K/mm3 Monocytes # (Manual) (0.0-0.8) K/mm3 PT (12.2-14.9) Sec. INR (0.87-1.13) APTT (24.2-36.6) Sec. ABG pH (7.320-7.450) POC ABG pCO2 (32.0-48.0) mmHg POC ABG pO2 (83-108) mmHg ABG pO2 (80.0-90.0) mm Hg ABG HCO3 (20.0-26.0) mmol/L ABG Base Excess (-2.0-3.0) mmol/L ABG Oxyhemoglobin (94-98) ABG Potassium (3.40-4.50) mmol/L ABG Glucose (65-95) mg/dL Carbon Dioxide 15 L (22-30) mmol/L BUN 5 L (7-17) mg/dL Glucose 260 H (65-100) mg/dL POC Glucose (70-105) mg/dL Lactic Acid 4.90 H* (0.7-2.0) mmol/L Calcium 7.1 L (8.4-10.2) mg/dL Magnesium 1.40 L (1.7-2.3) mg/dL AST 267 H (5-40) units/L ALT 114 H (7-56) units/L Alkaline Phosphatase 258 H (35-129) units/L CK-MB (CK-2) 4.1 H (0.0-4.0) ng/mL Troponin T 0.043 H (0.00-0.029) ng/mL NT-Pro-B Natriuret Pep 3038 H (0-900) pg/mL Total Protein 5.3 L (6.3-8.2) g/dL Albumin 2.7 L (3.9-5) g/dL Triglycerides 168 H (2-149) mg/dL LDL Cholesterol Direct 41 L (50-130) mg/dL HDL Cholesterol 23 L (40-59) mg/dL TSH 36.290 H (0.270-4.200) mlU/mL Arterial Blood Glucose (65-95) mg/dL Arterial Blood Ionized Calcium (4.6-5.3) mg/dL 11/09/20 11/09/20 11/09/20 Range/Units 05:31 05:31 09:01 WBC (4.5-11.0) K/mm3 Hgb 15.3 H D (10.1-14.3) gm/dl Hct 47.2 H D (30.3-42.9) % MCH (28-32) pg RDW (13.2-15.2) % Seg Neutrophils # Man (1.8-7.7) K/mm3 Lymphocytes # (Manual) (1.2-5.4) K/mm3 Monocytes # (Manual) (0.0-0.8) K/mm3 PT 15.0 H (12.2-14.9) Sec. INR (0.87-1.13) APTT (24.2-36.6) Sec. ABG pH 7.317 L (7.320-7.450) POC ABG pCO2 (32.0-48.0) mmHg POC ABG pO2 (83-108) mmHg ABG pO2 154.8 H (80.0-90.0) mm Hg ABG HCO3 18.2 L (20.0-26.0) mmol/L ABG Base Excess -7.1 L (-2.0-3.0) mmol/L ABG Oxyhemoglobin (94-98) ABG Potassium (3.40-4.50) mmol/L ABG Glucose (65-95) mg/dL Carbon Dioxide (22-30) mmol/L BUN (7-17) mg/dL Glucose (65-100) mg/dL POC Glucose (70-105) mg/dL Lactic Acid (0.7-2.0) mmol/L Calcium (8.4-10.2) mg/dL Magnesium (1.7-2.3) mg/dL AST (5-40) units/L ALT (7-56) units/L Alkaline Phosphatase (35-129) units/L CK-MB (CK-2) (0.0-4.0) ng/mL Troponin T (0.00-0.029) ng/mL NT-Pro-B Natriuret Pep (0-900) pg/mL Total Protein (6.3-8.2) g/dL Albumin (3.9-5) g/dL Triglycerides (2-149) mg/dL LDL Cholesterol Direct (50-130) mg/dL HDL Cholesterol (40-59) mg/dL TSH (0.270-4.200) mlU/mL Arterial Blood Glucose (65-95) mg/dL Arterial Blood Ionized Calcium (4.6-5.3) mg/dL 11/09/20 11/09/20 11/09/20 Range/Units 12:48 14:38 15:01 WBC (4.5-11.0) K/mm3 Hgb (10.1-14.3) gm/dl Hct (30.3-42.9) % MCH (28-32) pg RDW (13.2-15.2) % Seg Neutrophils # Man (1.8-7.7) K/mm3 Lymphocytes # (Manual) (1.2-5.4) K/mm3 Monocytes # (Manual) (0.0-0.8) K/mm3 PT (12.2-14.9) Sec. INR (0.87-1.13) APTT (24.2-36.6) Sec. ABG pH (7.320-7.450) POC ABG pCO2 31.9 L (32.0-48.0) mmHg POC ABG pO2 63.6 L (83-108) mmHg ABG pO2 (80.0-90.0) mm Hg ABG HCO3 (20.0-26.0) mmol/L ABG Base Excess (-2.0-3.0) mmol/L ABG Oxyhemoglobin 91.8 L (94-98) ABG Potassium (3.40-4.50) mmol/L ABG Glucose 161 H (65-95) mg/dL Carbon Dioxide (22-30) mmol/L BUN (7-17) mg/dL Glucose (65-100) mg/dL POC Glucose 159 H (70-105) mg/dL Lactic Acid 3.70 H* (0.7-2.0) mmol/L Calcium (8.4-10.2) mg/dL Magnesium (1.7-2.3) mg/dL AST (5-40) units/L ALT (7-56) units/L Alkaline Phosphatase (35-129) units/L CK-MB (CK-2) (0.0-4.0) ng/mL Troponin T (0.00-0.029) ng/mL NT-Pro-B Natriuret Pep (0-900) pg/mL Total Protein (6.3-8.2) g/dL Albumin (3.9-5) g/dL Triglycerides (2-149) mg/dL LDL Cholesterol Direct (50-130) mg/dL HDL Cholesterol (40-59) mg/dL TSH (0.270-4.200) mlU/mL Arterial Blood Glucose 161 H (65-95) mg/dL Arterial Blood Ionized Calcium 4.3 L (4.6-5.3) mg/dL Diabetes panel 11/09/20 11/09/20 Range/Units 01:43 05:31 Sodium 138 (137-145) mmol/L Potassium 3.7 (3.6-5.0) mmol/L Chloride 99.3 (98-107) mmol/L Carbon Dioxide 15 L (22-30) mmol/L BUN 5 L (7-17) mg/dL Creatinine 0.8 (0.6-1.2) mg/dL Glucose 260 H (65-100) mg/dL Hemoglobin A1c 5.2 (4-6) % Calcium 7.1 L (8.4-10.2) mg/dL AST 267 H (5-40) units/L ALT 114 H (7-56) units/L Alkaline Phosphatase 258 H (35-129) units/L Total Protein 5.3 L (6.3-8.2) g/dL Albumin 2.7 L (3.9-5) g/dL Triglycerides 168 H (2-149) mg/dL HDL Cholesterol 23 L (40-59) mg/dL Thyroid panel 11/09/20 Range/Units 01:43 TSH 36.290 H (0.270-4.200) mlU/mL Calcium panel 11/09/20 Range/Units 01:43 Calcium 7.1 L (8.4-10.2) mg/dL Albumin 2.7 L (3.9-5) g/dL Pituitary panel 11/09/20 11/09/20 Range/Units 01:43 01:43 Sodium 138 (137-145) mmol/L Potassium 3.7 (3.6-5.0) mmol/L Chloride 99.3 (98-107) mmol/L Carbon Dioxide 15 L (22-30) mmol/L BUN 5 L (7-17) mg/dL Creatinine 0.8 (0.6-1.2) mg/dL Glucose 260 H (65-100) mg/dL Calcium 7.1 L (8.4-10.2) mg/dL TSH 36.290 H (0.270-4.200) mlU/mL Adrenal panel 11/09/20 Range/Units 01:43 Sodium 138 (137-145) mmol/L Potassium 3.7 (3.6-5.0) mmol/L Chloride 99.3 (98-107) mmol/L Carbon Dioxide 15 L (22-30) mmol/L BUN 5 L (7-17) mg/dL Creatinine 0.8 (0.6-1.2) mg/dL Glucose 260 H (65-100) mg/dL Calcium 7.1 L (8.4-10.2) mg/dL Total Bilirubin 0.30 (0.1-1.2) mg/dL AST 267 H (5-40) units/L ALT 114 H (7-56) units/L Alkaline Phosphatase 258 H (35-129) units/L Total Protein 5.3 L (6.3-8.2) g/dL Albumin 2.7 L (3.9-5) g/dL - Imaging Chest x-ray: report reviewed, image reviewed CT scan - chest: report reviewed, image reviewed Assessment and Plan 55 year old female intubated s/p resuscitation for cardiac arrest. small left pneumothorax. Afebrile with guarded prognosis. Will talk to daughter about chest tube placement.
[2020-11-09 16:12] LABS: Bacteria,Urine 2+ /HPF (Negative); Bilirubin,Urine NEG (Negative); Blood,Urine MOD (Negative); Color,Urine Yellow (Yellow); Mucus,Urine FEW /HPF; Urobilinogen,Urine < 2.0 mg/dL (<2.0)
[2020-11-09] MEDS: NORepinephrine/NS 4 MG-250 ML 4 MG/250 ML BAG IV SCH ×2 (16:15→22:22)
[2020-11-09 16:16] LABS: Amphetamine Screen,Urine Negative; Benzodiazepines Screen,Urine Negative; Cannabinoid Screen,Urine Negative; Cocaine Screen,Urine Negative; Methadone Screen,Urine Negative; Opiate Screen,Urine Negative
--- NOTE | 2020-11-09 17:28 | Procedure Note ---
Date of procedure: 11/09/20 Pre-op diagnosis: left pneumothorax Post-op diagnosis: same Procedure: left sided chest tube placement consent obtained from daughter Xochilt [address] in left 4/5 intercostal space mid axillary line in sterile fashion. secured at 12cm marking at skin and attached to pleurovac. Pt tolerated the procedure well. CXR ordered. Anesthesia: local Surgeon: MANJU RODRIGUEZ Estimated blood loss: minimal Pathology: none Condition: critical Disposition: no change
--- NOTE | 2020-11-09 18:03 | XRay Report ---
CHEST 1 VIEW 11/09/2020 4:49 PM INDICATION / CLINICAL INFORMATION: left chest tube placement.. COMPARISON: 11/09/2020 FINDINGS: SUPPORT DEVICES: Interval placement of left-sided chest tube with satisfactory appearance. Endotrache al tube, right central venous catheter, and gastric tube appear satisfactory position. HEART / MEDIASTINUM: Stable. LUNGS / PLEURA: No significant pulmonary or pleural abnormality. No pneumothorax. ADDITIONAL FINDINGS: No significant additional findings. IMPRESSION: 1. Interval placement of left-sided chest tube without acute complication. Signer Name: Emerson Elam MD Signed: 11/09/2020 5:58 PM Workstation Name: [id number]
--- NOTE | 2020-11-09 18:07 | XRay Report ---
ABDOMEN 1 VIEW 11/09/2020 4:49 PM INDICATION / CLINICAL INFORMATION: NGT placement.. COMPARISON: Chest radiograph 11/09/2020 FINDINGS: TUBES / LINES: Gastric tube crosses the gastroesophageal junction and terminates in the distal stomac h which appears moderately distended with gas. BOWEL GAS PATTERN: Nonobstructive gas pattern. FREE AIR / EXTRALUMINAL GAS: None. ADDITIONAL FINDINGS: No significant additional findings. IMPRESSION: 1. Satisfactory appearance of the gastric tube. Signer Name: Emerson Elam MD Signed: 11/09/2020 6:03 PM Workstation Name: [id number]
[2020-11-09] MEDS: VANCOMYCIN 1,750 MG in SODIUM CHLORIDE 0.9% 500 ML 500 ML IV SCH (18:36)
[2020-11-09] MEDS ORDERED: ACETAMINOPHEN 325 MG/10.15 ML ORAL LIQD UNIT DOSE FEEDTUBE PRN (19:55)
[2020-11-09] MEDS ORDERED: ACETAMINOPHEN 325 MG TAB PO PRN (19:57)
[2020-11-09] MEDS ORDERED: SODIUM CHLORIDE 0.9% 1000 ML IV SOLN IV ONE (20:57)
[2020-11-09] MEDS: FAMOTIDINE 20 MG/2 ML INJ IV SCH (21:11)
[2020-11-09] MEDS ORDERED: ENOXAPARIN 40 MG/0.4 ML INJ SUB-Q SCH (22:00)
[2020-11-09] MEDS: SENNOSIDES/DOCUSATE SODIUM 8.6/50 MG TAB FEEDTUBE SCH (22:23)
[2020-11-10] MEDS: NORepinephrine/NS 4 MG-250 ML 4 MG/250 ML BAG IV SCH ×5 (03:17→16:25)
[2020-11-10] MEDS: SODIUM CHLORIDE 0.9% 1000 ML 1,000 ML IV SCH ×4 (03:18→22:50)
[2020-11-10] MEDS: AMIODARONE 900 MG in DEXTROSE 5% IN WATER 482 ML IV SCH (04:32)
[2020-11-10] MEDS: PIPERACIL/TAZOBACTA 4.5/NS 100 4.5 GM/100 ML VIAL IV SCH (05:19)
[2020-11-10 05:46] LABS: Hematocrit 39.7 % (30.3-42.9); Hemoglobin 12.6 gm/dl (10.1-14.3); Mean Corpuscular HGB Conc 32 % (30-34); Mean Corpuscular Volume 83 fl (79-97); Platelet Count 275 K/mm3 (140-440); Red Blood Count 4.77 M/mm3 (3.65-5.03); Red Cell Distribution Width 15.8 % (13.2-15.2)
[2020-11-10 05:57] LABS: INR 1.5 (0.87-1.13)
[2020-11-10] MEDS: VANCOMYCIN 1,750 MG in SODIUM CHLORIDE 0.9% 500 ML 500 ML IV SCH (05:58)
[2020-11-10 06:05] LABS: Albumin 2.6 g/dL (3.9-5); Calcium 6.7 mg/dL (8.4-10.2)
--- NOTE | 2020-11-10 06:20 | Consultation ---
DATE OF CONSULTATION: 11/09/2020 PULMONARY CRITICAL CARE CONSULT NOTE CONSULTING PHYSICIAN: . REASON FOR CONSULTATION: Acute hypoxemic respiratory failure, cardiac arrest with return of spontaneous circulation. CHIEF COMPLAINT AND HISTORY OF PRESENT ILLNESS: As follows: The patient is a 55-year-old female with past medical history significant amongst other things according to her daughter a diagnosis of breast cancer diagnosed in 2018. She had a lumpectomy done at that time. She was then diagnosed with colon cancer with metastasis to the liver and lungs. She stated she had been undergoing treatment for that and that liver lesions were reported to have essentially in remission. She states she got home yesterday and saw her mother, spoke to her, went out to walk her dogs and when she came back, her mother was lying down on the bed, looking like something was wrong. She rushed over the area and said that she did not feel a pulse. She states she started CPR right away, gave some rescue breaths, later felt her pulse. EMS services came. When they got there, they reported that the patient was in asystole. She received three rounds of epinephrine, sodium bicarbonate. There was return of spontaneous circulation. She was placed on vasopressors and intubated, brought into the Emergency Room. In the Emergency Room, she was evaluated and significantly hypoxemic. Of note, her daughter mentioned that she also vomited while she was doing the CPR and she tried her best to clear her airway of food particles. In the ER, she was found to have significant left pneumonia in left lower lobe, but also left apical pneumothorax. Of note, it is unclear where the lung lesions were or if these findings are new. She does mention that her mother was recently at [facility] a few days prior with a similar kind of presentation, according to her. We are asked to assist with management. When I stopped by to see her, she was on the mechanical ventilator, breathing over the set rate, which at that time was set at 28. She was requiring I believe tidal volumes of about 450, PEEP of 8 and 100% FiO2. O2 sats at that time were around 97% to 98%. The patient is not a current tobacco smoker. Remote history is unknown. Daughter denied any trauma prior to her cardiac arrest. This really is as much of the history of presentation as I have. PAST MEDICAL HISTORY: Breast cancer, colon cancer, lung lesions, presumably metastatic cancer. She is obese. She has a history of cellulitis. PAST SURGICAL HISTORY: Unknown. MEDICATIONS: She was on at the time I stopped by to see according to the medication administration record included the following: She was on amiodarone drip going at 1 mg per minute, propofol drip was going at 30 mcg per kilogram per minute, heparin drip was going started at 1000 units per hour, I believe ACS protocol, morphine sulfate 2 mg IV q.4 hours p.r.n. moderate pain. Levophed drip had been going at 2 mcg per minute earlier. Zosyn 4.5 grams IV q.8 hours. ALLERGIES: Unknown. DIET: Obese lady, acute weight loss or gain history is unknown. FAMILY AND SOCIAL HISTORY: Lives in the community. She has a daughter that gave the history. She says she has another brother. She does not appear to be . Family history, social history is otherwise unknown. REVIEW OF SYSTEMS: Unobtainable secondary to patient's medical and mental condition. Since she has been here, no gross hematochezia or melena, no gross hematuria, no bloody tracheal secretions, no witnessed seizures. Review of systems otherwise unobtainable or as in the body of the history above. PHYSICAL EXAMINATION: VITAL SIGNS: At presentation in the Emergency Room, review of the vital sign ____low-grade fever of 99.7 degrees Fahrenheit, pulse was 87 at presentation, respiratory rate 17, blood pressure 88/53, O2 sats were 86%, inspired oxygen concentration at that time was not recorded. GENERAL: She is a middle-aged obese female. Normocephalic on the mechanical ventilator with mild patient-ventilator dyssynchrony. HEAD, EYES, EARS, NOSE, AND THROAT: Anicteric. No conjunctival erythema. Oropharynx was moist. Endotracheal tube was taped at the lips around 23-24 cm. NECK: No gross jugular venous distention, no thyromegaly. No significant subcutaneous emphysema or crepitus was felt in particular in the left upper chest region. LUNGS: Auscultation of both lung talavera significant for slightly diminished bilateral breath sounds, diminished left lower lobe air entry. Bibasilar rales, left greater than right, but good breath sounds in all zones. ABDOMEN: Soft, full, bowel sounds are positive, nontender, no palpable hepatosplenomegaly. HEART: Sounds 1 and 2 are heard at the time of my evaluation, regular rate and rhythm. EXTREMITIES: Without overt digital clubbing or cyanosis. No pedal edema. Pedal pulses were 2+ bilaterally. She had a right femoral Vascath in the right groin region. NEUROLOGIC: Pupils were equal, round, about 4 mm, sluggishly reactive to light. Extraocular muscle movements could not be assessed. She had some spontaneous movements to extremities. SKIN: Poor turgor in the areas examined. She had areas of significant erythema and blanching to the groin regions bilaterally. I do not see any open wounds. Please see the wound care nurses' notes for full description of her skin. PSYCHIATRIC: Mood and affect could not be assessed. She was sedated. LABORATORY DATA: From my review as follows: White cell count 34,300, hemoglobin 11.4, hematocrit 36.7, platelet count was 298, 8.5% band forms on the manual differential. INR was 1.25. Venous blood gas at presentation; arterial blood gas showed a pH of 7.23, pCO2 of 50, pO2 of 69 that was on 100% oxygen. Follow up ABG showed a pH of 7.32, pCO2 of 36 and a pO2 of 155, on 100% FiO2 on the above-mentioned settings. Serum sodium was 138, potassium 3.7, chloride 99, bicarbonate 15, BUN 5, creatinine 0.8, glucose was 260. Lactic acid level was 4.9. Magnesium was low at 1.4. AST 267, ALT 114. Troponin was up at 0.043. BNP was elevated at 3038. Albumin 2.7. TSH 36.29. Free T4 within normal limits. Two sets of blood cultures, no growth to date. A CT angiogram was done of her chest. I have reviewed it. I have also reviewed the radiologist's interpretation. I do agree no gross filling defects consistent with pulmonary emboli and a good contrast phase timing. She does have a trace left apical pneumothorax. She has some upper lobe scarring, possible left upper lobe lesion and then she has the consolidation in particular in the left lower lobe really subsegmental atelectasis over there. No gross pneumothorax, no gross bony fractures. A CT scan of her head was also done, no CT evidence of an acute intracranial process. A chest x-ray shows an implanted cardiac device in the right upper anterior chest wall with the tip in the distal SVC/right atrial junction. ASSESSMENT: 1. Acute hypoxemic respiratory failure, on mechanical ventilatory support. 2. Bilateral pneumonia, left greater than right. 3. Left lower lobe atelectasis. 4. History of metastatic colon cancer including mets to Liver & Lungs 5. Lung pulmonary metastasis. 6. Severe sepsis with shock. 7. Leukocytosis. 8. Obesity. 9. Metabolic acidosis. 10. Elevated serum transaminases. 11. Possible cardiomyopathy with elevated serum BMP. 12. Non-ST elevation myocardial infarction. 13. Cardiac arrest with return of spontaneous circulation. PLAN: I have discussed with her daughter at length and she says her mom has been battling cancer essentially for past five years and mom does not intend to stop. She remains a FULL CODE. I explained to her that she will likely need a chest tube for the left apical pneumothorax with her mother and positive pressure ventilation. Surgery has been consulted and their input will be followed. Oxygen will be weaned to keep sats greater than or equal to about 92% empirically. She will be under contact and airborne precautions while she is being ruled out for COVID-19 infection. I will keep the PEEP at 8 in light of the pneumothorax and see if we can continue to wean her from there. Hopefully, the left lower lobe atelectasis maybe iatrogenic or post-aspiration at home and hopefully that improves with ventilation. I have asked the nurse to begin a fentanyl drip to get pain out of the question. We will titrate sedation, otherwise for RASS scale of -2 to -3 acutely. Ventilator-associated pneumonia bundle has been introduced. A routine trach care, bronchodilators and pulmonary hygiene will be per the respiratory therapist. ACS workup will be deferred to the impression printer. I will continue the IV heparin in the meantime and get bilateral lower extremity Dopplers to complete this venous thromboembolic disease workup. She certainly is at high risk for that. We will continue broad spectrum antibiotic therapy as ordered. Infectious disease consultation will also be placed to assist with anti-infective management. She is fully anticoagulated. I will be putting her on GI prophylaxis. I will go with Pepcid empirically. I will also give her one dose of vancomycin. I will have the nurse to request records from [facility] especially radiographic studies to see if any of this is old. Neurology evaluation is pending. Flu and pneumonia vaccination will be addressed per protocol. Thank you very much for the consult. We will follow along and make further recommendations as picture progresses/becomes clearer. She is critically ill on life-sustained interventions including mechanical ventilatory support. I should mention vasopressors will be weaned to keep mean arterial pressures greater than about 65 mmHg. I will also be ordering a 2D echo to see if there is any element of congestive heart failure at play here. Again, critically ill and at high risk of from cardiopulmonary system decompensation. At this time, we spent about 45 minutes of critical care time without overlap and excluding any procedural time that may be necessary . TID: [id number] RECEIPT: [id number] KODY/ALYCIA/SHIRA MEDEIROS
--- NOTE | 2020-11-10 06:33 | XRay Report ---
CHEST 1 VIEW, 11/10/2020 521 AM CLINICAL INFORMATION/INDICATION: Respiratory failure COMPARISON: Chest radiograph, 11/09/2020 at 5:33 PM FINDINGS: SUPPORT DEVICES: Support tubes and lines project in stable position. HEART: The cardiac silhouette is normal in size. LUNGS/PLEURA: There are stable faint bilateral patchy pulmonary opacities. No evidence of pneumothora x or large pleural effusion. ADDITIONAL FINDINGS: No additional acute findings. IMPRESSION: 1. Stable faint bilateral pulmonary opacities. Signer Name: Shirley Arshad MD Signed: 11/10/2020 6:29 AM Workstation Name: [id number]
[2020-11-10 06:38] LABS: Band Neutrophils # (Manual) 0.2 K/mm3; Monocytes % (Manual) 4.5 % (0.0-7.3); Nucleated Red Blood Cells 0.5 % (0.0-0.9); Total Cells Counted 200
[2020-11-10 06:39] LABS: Anisocytosis 1+; Platelet Estimate Consistent w Auto
[2020-11-10 07:22] LABS: Hepatitis B Surface Antigen Non-Reactive (Negative); Hepatitis C Virus Antibody Non-Reactive (NonReactive)
[2020-11-10] MEDS ORDERED: VANCOMYCIN PHARMACY TO DOSE IV SCH (08:00)
--- NOTE | 2020-11-10 08:47 | Progress Note ---
Assessment and Plan Assessment and plan: S/p cardiopulmonary arrest. Left apical pneumothorax Hypomagnesemia Elevated LFTs Sepsis Probable aspiration pneumonia. 11/09/2020. CTA of the chest reveals trace left apical pneumothorax, faint pat mauricio parenchymal densities involving the bilateral upper lobes. Findings are nonspecific and considerations include infectious or inflammatory process, embolic phenomena or neoplasm. No evidence of pulmonary embolism. Await Surgery consultation for PTX. Radio Adjuster has also been consulted by the ER physician for the cardiac arrhythmia. Continue heparin drip. Pt. with mechanical ventilation AC mode rate 28, tidal volume 450, FiO2 100% and PEEP of 8. 11/10/2020. Patient is s/p left chest tube with pleurovac completed yesterday. Await cardiology recommendations with regards to cardiac arrhythmia/cardiac arrest. Follow-up EEG. Await neurology recommendations. Patient remains on mechanical ventilation AC mode rate 30, tidal volume 450, FiO2 100% and PEEP of 8. Prognosis is guarded. The high probability of a clinically significant, sudden or life threatening deterioration of the [neurological, pulmonary and cardiac] system(s) required my full and direct attention, intervention and personal management. The aggregate critical care time was [33] minutes. This time is in addition to time spent performing reported procedures but includes the following: [x] Data Review and interpretation [x] Patient assessment and monitoring of vital signs [x] Documentation [x] Medication orders and management History Interval history: The patient is intubated/sedated; no family members available. History is per the chart and staff. She was brought to the ER after cardiac arrest at home, and was in asystole in the ER. She was intubated and resuscitated, and transferred to the ICU. CTA was negative for a PE. Cardiac w/u in progress. She was noted to have a port present (hx of breast cancer), a WBC of 35K, and elevated LFTs. Since admit to the ICU, she has been non-responsive with myoclonic jerking (despite no current sedation); a CT shows no acute intracranial trauma. No new issues overnight Hospitalist Physical - Constitutional Vitals: Temp Pulse Resp BP Pulse Ox 103.1 F H 82 31 H 103/58 92 11/10/20 07:30 11/10/20 08:00 11/10/20 08:00 11/10/20 08:00 11/10/20 08:00 General appearance: Present: severe distress, other (Orally intubated on mechanical ventilation) - EENT Eyes: Present: PERRL, EOM intact ENT: hearing intact, clear oral mucosa, dentition normal - Neck Neck: Present: supple, normal ROM - Respiratory Respiratory effort: normal Respiratory: bilateral: CTA - Cardiovascular Rhythm: regular Heart Sounds: Present: S1 & S2. Absent: gallop, rub - Extremities Extremities: no ischemia, No edema, Full ROM - Abdominal General gastrointestinal: soft, non-tender, non-distended, normal bowel sounds - Integumentary Integumentary: Present: clear, warm, dry - Neurologic Neurologic: CNII-XII intact, moves all extremities HEART Score - HEART Score Troponin: Troponin T 0.043 ng/mL (0.00-0.029) H 11/09/20 01:43 Results - Labs CBC & Chem 7: 11/10/20 05:30 11/10/20 05:30 Labs: Laboratory Last Values WBC 31.5 K/mm3 (4.5-11.0) H 11/10/20 05:30 RBC 4.77 M/mm3 (3.65-5.03) 11/10/20 05:30 Hgb 12.6 gm/dl (10.1-14.3) 11/10/20 05:30 Hct 39.7 % (30.3-42.9) D 11/10/20 05:30 MCV 83 fl (79-97) 11/10/20 05:30 MCH 27 pg (28-32) L 11/10/20 05:30 MCHC 32 % (30-34) 11/10/20 05:30 RDW 15.8 % (13.2-15.2) H 11/10/20 05:30 Plt Count 275 K/mm3 (140-440) 11/10/20 05:30 Lymph # (Auto) Theater Usher 11/09/20 01:43 Add Manual Diff Complete 11/10/20 05:30 Total Counted 200 11/10/20 05:30 Seg Neuts % (Manual) 91.0 % (40.0-70.0) H 11/10/20 05:30 Band Neutrophils % 0.5 % 11/10/20 05:30 Lymphocytes % (Manual) 4.0 % (13.4-35.0) L 11/10/20 05:30 Monocytes % (Manual) 4.5 % (0.0-7.3) 11/10/20 05:30 Nucleated RBC % 0.5 % (0.0-0.9) 11/10/20 05:30 Seg Neutrophils # Man 28.7 K/mm3 (1.8-7.7) H 11/10/20 05:30 Band Neutrophils # 0.2 K/mm3 11/10/20 05:30 Lymphocytes # (Manual) 1.3 K/mm3 (1.2-5.4) 11/10/20 05:30 Abs React Lymphs (Man) 0.0 K/mm3 11/10/20 05:30 Monocytes # (Manual) 1.4 K/mm3 (0.0-0.8) H 11/10/20 05:30 Eosinophils # (Manual) 0.0 K/mm3 (0.0-0.4) 11/10/20 05:30 Basophils # (Manual) 0.0 K/mm3 (0.0-0.1) 11/10/20 05:30 Metamyelocytes # 0.0 K/mm3 11/10/20 05:30 Myelocytes # 0.0 K/mm3 11/10/20 05:30 Promyelocytes # 0.0 K/mm3 11/10/20 05:30 Blast Cells # 0.0 K/mm3 11/10/20 05:30 WBC Morphology Not Reportable 11/10/20 05:30 Hypersegmented Neuts Not Reportable 11/10/20 05:30 Hyposegmented Neuts Not Reportable 11/10/20 05:30 Hypogranular Neuts Not Reportable 11/10/20 05:30 Smudge Cells Not Reportable 11/10/20 05:30 Toxic Granulation Not Reportable 11/10/20 05:30 Toxic Vacuolation Not Reportable 11/10/20 05:30 Dohle Bodies Not Reportable 11/10/20 05:30 Pelger-Huet Anomaly Not Reportable 11/10/20 05:30 Latia Rods Not Reportable 11/10/20 05:30 Platelet Estimate Consistent w auto 11/10/20 05:30 Clumped Platelets Not Reportable 11/10/20 05:30 Plt Clumps, EDTA Not Reportable 11/10/20 05:30 Large Platelets Not Reportable 11/10/20 05:30 Giant Platelets Not Reportable 11/10/20 05:30 Platelet Satelliting Not Reportable 11/10/20 05:30 Plt Morphology Comment Not Reportable 11/10/20 05:30 RBC Morphology Not Reportable 11/10/20 05:30 Dimorphic RBCs Not Reportable 11/10/20 05:30 Polychromasia Not Reportable 11/10/20 05:30 Hypochromasia Not Reportable 11/10/20 05:30 Poikilocytosis Not Reportable 11/10/20 05:30 Anisocytosis 1+ 11/10/20 05:30 Microcytosis Not Reportable 11/10/20 05:30 Macrocytosis Not Reportable 11/10/20 05:30 Spherocytes Not Reportable 11/10/20 05:30 Pappenheimer Bodies Not Reportable 11/10/20 05:30 Sickle Cells Not Reportable 11/10/20 05:30 Target Cells Not Reportable 11/10/20 05:30 Tear Drop Cells Not Reportable 11/10/20 05:30 Ovalocytes Not Reportable 11/10/20 05:30 Helmet Cells Not Reportable 11/10/20 05:30 [place] Bodies Not Reportable 11/10/20 05:30 Lengby Rings Not Reportable 11/10/20 05:30 Armona Cells Not Reportable 11/10/20 05:30 Bite Cells Not Reportable 11/10/20 05:30 Crenated Cell Not Reportable 11/10/20 05:30 Elliptocytes Not Reportable 11/10/20 05:30 Acanthocytes (Spur) Not Reportable 11/10/20 05:30 Rouleaux Not Reportable 11/10/20 05:30 Hemoglobin C Crystals Not Reportable 11/10/20 05:30 Schistocytes Not Reportable 11/10/20 05:30 Malaria parasites Not Reportable 11/10/20 05:30 Bebeto Bodies Not Reportable 11/10/20 05:30 Hem Pathologist Commnt No 11/10/20 05:30 PT 18.7 Sec. (12.2-14.9) H 11/10/20 05:30 INR 1.50 (0.87-1.13) H 11/10/20 05:30 APTT 32.1 Sec. (24.2-36.6) 11/09/20 05:31 Heparin Anti-Xa Level 0.44 U.I./ml (0.3-0.7) 11/09/20 21:07 ABG pH 7.391 (7.320-7.450) 11/09/20 14:38 POC ABG pCO2 31.9 mmHg (32.0-48.0) L 11/09/20 14:38 ABG pCO2 36.4 mm Hg 11/09/20 09:01 POC ABG pO2 63.6 mmHg (83-108) L 11/09/20 14:38 ABG pO2 154.8 mm Hg (80.0-90.0) H 11/09/20 09:01 POC ABG HCO3 18.9 11/09/20 14:38 ABG HCO3 18.2 mmol/L (20.0-26.0) L 11/09/20 09:01 ABG O2 Saturation 92.7 (0-100) 11/09/20 14:38 ABG O2 Content 21.1 (0.0-44) 11/09/20 09:01 POC ABG Base Excess -4.8 11/09/20 14:38 ABG Base Excess -7.1 mmol/L (-2.0-3.0) L 11/09/20 09:01 ABG Hemoglobin 15.3 (12.0-17.5) 11/09/20 14:38 ABG Oxyhemoglobin 91.8 (94-98) L 11/09/20 14:38 ABG Carboxyhemoglobin 1.0 % (0.0-5.0) 11/09/20 09:01 ABG Methemoglobin 0.3 (0.0-1.5) 11/09/20 14:38 ABG Sodium 137.3 mmol/L (136.0-145.0) 11/09/20 14:38 ABG Potassium 3.9 mmol/L (3.40-4.50) 11/09/20 14:38 ABG Chloride 102.0 mmol/L (98-107) 11/09/20 14:38 ABG Glucose 161 mg/dL (65-95) H 11/09/20 14:38 Oxyhemoglobin 97.3 % (95.0-99.0) 11/09/20 09:01 Carboxyhemoglobin 0.7 (0.5-1.5) 11/09/20 14:38 FiO2 100 % 11/09/20 09:01 FiO2 % 85.0 11/09/20 14:38 Sodium 141 mmol/L (137-145) 11/10/20 05:30 Potassium 3.5 mmol/L (3.6-5.0) L 11/10/20 05:30 Chloride 107.9 mmol/L (98-107) H 11/10/20 05:30 Carbon Dioxide 17 mmol/L (22-30) L 11/10/20 05:30 Anion Gap 20 mmol/L 11/10/20 05:30 BUN 22 mg/dL (7-17) H 11/10/20 05:30 Creatinine 1.8 mg/dL (0.6-1.2) H D 11/10/20 05:30 Estimated GFR 29 ml/min 11/10/20 05:30 BUN/Creatinine Ratio 12 % 11/10/20 05:30 Glucose 129 mg/dL (65-100) H 11/10/20 05:30 POC Glucose 119 mg/dL (70-105) H 11/09/20 23:26 Hemoglobin A1c 5.2 % (4-6) 11/09/20 05:31 Lactic Acid 2.60 mmol/L (0.7-2.0) H* 11/10/20 05:30 Calcium 6.7 mg/dL (8.4-10.2) L 11/10/20 05:30 Phosphorus 1.70 mg/dL (2.5-4.5) L 11/09/20 16:20 Magnesium 2.00 mg/dL (1.7-2.3) 11/10/20 05:30 Total Bilirubin 0.50 mg/dL (0.1-1.2) 11/10/20 05:30 AST 325 units/L (5-40) H 11/10/20 05:30 ALT 116 units/L (7-56) H 11/10/20 05:30 Alkaline Phosphatase 182 units/L (35-129) H 11/10/20 05:30 Total Creatine Kinase 117 units/L (30-135) 11/09/20 01:43 CK-MB (CK-2) 4.1 ng/mL (0.0-4.0) H 11/09/20 01:43 CK-MB (CK-2) Rel Index 3.5 (0-4) 11/09/20 01:43 Troponin T 0.043 ng/mL (0.00-0.029) H 11/09/20 01:43 NT-Pro-B Natriuret Pep 3038 pg/mL (0-900) H 11/09/20 01:43 Total Protein 5.7 g/dL (6.3-8.2) L 11/10/20 05:30 Albumin 2.6 g/dL (3.9-5) L 11/10/20 05:30 Albumin/Globulin Ratio 0.8 % 11/10/20 05:30 Triglycerides 168 mg/dL (2-149) H 11/09/20 01:43 Cholesterol 86 mg/dL (50-199) 11/09/20 01:43 LDL Cholesterol Direct 41 mg/dL (50-130) L 11/09/20 01:43 HDL Cholesterol 23 mg/dL (40-59) L 11/09/20 01:43 Cholesterol/HDL Ratio 3.73 % 11/09/20 01:43 TSH 36.290 mlU/mL (0.270-4.200) H 11/09/20 01:43 Free T4 0.89 ng/dL (0.76-1.46) 11/09/20 01:43 Arterial Blood Glucose 161 mg/dL (65-95) H 11/09/20 14:38 Arterial Blood Ionized Calcium 4.3 mg/dL (4.6-5.3) L 11/09/20 14:38 Urine Color Yellow (Yellow) 11/09/20 15:45 Urine Turbidity Slightly-cloudy (Clear) 11/09/20 15:45 Urine pH 5.0 (5.0-7.0) 11/09/20 15:45 Ur Specific [place] 1.053 (1.003-1.030) H 11/09/20 15:45 Urine Protein 100 mg/dl mg/dL (Negative) 11/09/20 15:45 Urine Glucose (UA) 50 mg/dL (Negative) 11/09/20 15:45 Urine Ketones Neg mg/dL (Negative) 11/09/20 15:45 Urine Blood Mod (Negative) 11/09/20 15:45 Urine Nitrite Neg (Negative) 11/09/20 15:45 Urine Bilirubin Neg (Negative) 11/09/20 15:45 Urine Urobilinogen < 2.0 mg/dL (<2.0) 11/09/20 15:45 Ur Leukocyte Esterase Neg (Negative) 11/09/20 15:45 Urine WBC (Auto) 13.0 /HPF (0.0-6.0) H 11/09/20 15:45 Urine RBC (Auto) 56.0 /HPF (0.0-6.0) 11/09/20 15:45 U Epithel Cells (Auto) < 1.0 /HPF (0-13.0) 11/09/20 15:45 Urine Bacteria (Auto) 2+ /HPF (Negative) 11/09/20 15:45 Urine Mucus Few /HPF 11/09/20 15:45 Urine Opiates Screen Negative 11/09/20 15:45 Urine Methadone Screen Negative 11/09/20 15:45 Ur Barbiturates Screen Negative 11/09/20 15:45 Ur Phencyclidine Scrn Negative 11/09/20 15:45 Ur Amphetamines Screen Negative 11/09/20 15:45 U Benzodiazepines Scrn Negative 11/09/20 15:45 Urine Cocaine Screen Negative 11/09/20 15:45 U Marijuana (THC) Screen Negative 11/09/20 15:45 Drugs of Abuse Note Disclamer 11/09/20 15:45 Coronavirus (PCR) Negative (Negative) 11/09/20 11:00 Hepatitis A IgM Ab Non-reactive (NonReactive) 11/10/20 05:30 Hep Bs Antigen Non-reactive (Negative) 11/10/20 05:30 Hep B Core IgM Ab Non-reactive (NonReactive) 11/10/20 05:30 Hepatitis C Antibody Non-reactive (NonReactive) 11/10/20 05:30 Blood Type A NEGATIVE 11/09/20 01:43 Antibody Screen Negative 11/09/20 01:43 Microbiology: Microbiology 11/09/20 05:31 Peripheral/Venous Blood Culture - Preliminary Culture in Progress 11/09/20 05:24 Peripheral/Venous Blood Culture - Preliminary Culture in Progress Mathur/IV: Voiding Method Indwelling Catheter Active Medications - Current Medications Current Medications: Generic Name Dose Route Start Last Admin Trade Name Freq PRN Reason Stop Dose Admin Acetaminophen 650 mg 11/09/20 19:55 11/09/20 21:11 Acetaminophen 325 Mg/10.15 Ml Oral Liqd Unit Dose FEEDTUBE 650 mg Q6H PRN Administration Pain, Mild (1-3) Dextrose 0 ml 11/09/20 05:14 Dextrose 50% In Water (25gm) 50 Ml Syringe IV Q30MIN PRN Hypoglycemia Protocol Famotidine 20 mg 11/09/20 22:00 11/09/20 21:11 Famotidine 20 Mg/2 Ml Inj IV 20 mg BID TROY Administration Fentanyl 50 mcg 11/09/20 09:04 Fentanyl 100 Mcg/2 Ml Inj IV 11/10/20 09:03 Q10MIN PRN ANALGESIA Heparin Sodium (Porcine) 4,100 unit 11/09/20 05:28 Heparin 10,000 Units/10 Ml Vial 40 unit/kg (4100 unit) IV Q6H PRN Anti-Xa Assay<0.1 units/ml Hydrophilic Ointment 1 applic 11/09/20 10:00 Lip Therapy Vaseline TP Q2HR PRN Dry Lips Amiodarone HCl 900 mg/ 500 mls @ 33.333 mls/hr 11/09/20 05:00 11/10/20 04:32 Dextrose IV 0.5 mg/min DIRECT TROY 16.667 mls/hr Administration Protocol 1 MG/MIN Heparin Sodium/Sodium Chloride 25,000 unit in 500 mls @ 20 mls/hr 11/09/20 06:00 11/09/20 22:56 Heparin/ 0.45% Nacl-25,000 Unit/500 Ml IV 1,000 units/hr TITRATE TROY 20 mls/hr Titration Protocol 1,000 UNITS/HR Piperacillin Sod/Tazobactam Sod 4.5 gm in 100 mls @ 200 mls/hr 11/09/20 06:00 11/10/20 05:19 Zosyn/Ns 4.5gm/100ml IV 200 mls/hr Q8H TROY Administration Protocol Fentanyl Citrate 2,000 mcg in 100 mls @ 5.15 mls/hr 11/09/20 10:00 11/09/20 23:05 Fentanyl Drip Premix IV 0 mcg/kg/hr TITR TROY 0 mls/hr Titration Protocol 1 MCG/KG/HR Propofol 1,000 mg in 100 mls @ 3.09 mls/hr 11/09/20 10:00 11/10/20 05:19 Diprivan 10 Mg/Ml IV 20 mcg/kg/min TITR TROY 12.36 mls/hr Administration Protocol 5 MCG/KG/MIN Norepinephrine 4 mg in 250 mls @ 7.5 mls/hr 11/09/20 10:00 11/10/20 05:19 Levophed Drip 4 Mg/Ns 250 Ml IV 18 mcg/min TITR TROY 67.5 mls/hr Administration Protocol 2 MCG/MIN Vancomycin HCl 1,750 mg/ 535 mls @ 267.5 mls/hr 11/09/20 18:00 11/10/20 05:58 Sodium Chloride IV 11/10/20 12:00 267.5 mls/hr Q12H TROY Administration Sodium Chloride 1,000 mls @ 150 mls/hr 11/09/20 22:45 11/10/20 03:18 Nacl 0.9% 1000 Ml IV 150 mls/hr DIRECT TROY Administration Vancomycin HCl 1,750 mg/ 535 mls @ 267.5 mls/hr 11/11/20 18:00 Sodium Chloride IV Q36H TROY Morphine Sulfate 2 mg 11/09/20 05:14 Morphine 2 Mg/1 Ml Inj IV Q4H PRN Pain, Moderate (4-6) Multi-Ingred Cream/Lotion/Oil/Oint 1 applic 11/09/20 10:00 Mineral Oil/Petrolatum, White Ophth Oint 3.5 Gm OU Q4HR PRN Dry Eye(s) Ondansetron HCl 4 mg 11/09/20 05:14 Ondansetron 4 Mg/2 Ml Inj IV Q8H PRN Nausea And Vomiting Senna/Docusate Sodium 1 tab 11/09/20 22:00 11/09/20 22:23 Sennosides/Docusate Sodium 8.6/50 Mg Tab FEEDTUBE Not Given BID TROY Sodium Chloride 10 ml 11/09/20 10:00 11/09/20 21:12 Sodium Chloride 0.9% 10 Ml Flush Syringe IV 10 ml BID TROY Administration Sodium Chloride 10 ml 11/09/20 05:14 Sodium Chloride 0.9% 10 Ml Flush Syringe IV PRN PRN LINE FLUSH Nutrition/Malnutrition Assess - Dietary Evaluation Nutrition/Malnutrition Findings: Nutrition Notes Start: 11/09/20 08:19 Freq: Status: Active Protocol: Document 11/09/20 08:19 CW (Rec: 11/09/20 08:36 CW [id number]) Nutrition Notes Need for Assessment generated from: Education Initial or Follow up Brief Note Other Pertinent Diagnosis [place], h/o BrCA Labs/Tests BG 260 HgbA1c 5.2 TG 168 Pertinent Medications NS 1L Height 5 ft 4 in Weight 103 kg [place] Body Weight (kg) 54.54 BMI 38.9 Weight Status Obese Subjective/Other Information MD consult for diet education. Diet education not appropriate at this time. Pt mechanically ventilated. Recommend initiating Glucerna when medically feasible. Monitor blood sugars and adjust TF accordingly. Burn Absent Trauma Absent Difficulty In Swallowing Current % PO Negligible #1 Nutrition Diagnosis Inadequate oral intake Etiology pt mechanically ventilated As Evidenced by Signs and Symptoms pt unable to consume via PO at this time Is patient on ventilator? Yes Is Patient Ambulatory and/or Out of Bed No REE-([facility]-confined to bed) 1924.236 Kcal/Kg value to use for calculation 15 Approximate Energy Requirements Using 1545 kcal/Kg Calculation Used for Recommendations Kcal/kg Additional Notes protein needs: >109g (>2g/ kgIBW) fluid needs: 1 ml/kcal or per MD order Nutrition Intervention Change Diet Order: Initiate TF regimen Nutrition Support: Glucerna 1.2 at 55 ml/hr with a free water flush of 100 ml q4h. Kcal 1,584 Protein (gm) 79 Fluid (mL) 1,063 Goal #1 Initiate nutrition support Anticipated Discharge Needs: unable to determine at this time Follow-Up By: 11/11/20 Additional Comments F/U for TF consult; extubation ; monitor BG levels
[2020-11-10] MEDS: HEPARIN/ 0.45% NACL DRIP 25,000 UNIT/500 ML BAG IV SCH (09:29)
[2020-11-10] MEDS ORDERED: LIDOCAINE (1%) 10 MG/1 ML VIAL 20 ML MDV ONE (10:38)
[2020-11-10] MEDS: FAMOTIDINE 20 MG/2 ML INJ IV SCH ×2 (10:43→22:49)
[2020-11-10] MEDS: SENNOSIDES/DOCUSATE SODIUM 8.6/50 MG TAB FEEDTUBE SCH ×2 (10:43→22:49)
--- NOTE | 2020-11-10 12:28 | Consultation ---
History of Present Illness Consult date: 11/10/20 Requesting physician: CHARLI ALBERTO Consult reason: other (Cardiac arrest) History of present illness: Patient is currently intubated. No history could be obtained from the patient. History obtained from the chart. The patient is a 55-year-old female who was found unresponsive by her family. Per the family the patient was last seen approximately 5 minutes prior was found by family unresponsive on the bed.family initiated CPR after calling 911. EMS arrived on scene and states that the patient was found to be in asystole initially. ACLS protocols were initiated and patient was intubated using a Paul airway. EMS states they administered 3 rounds epinephrine and 1 round of sodium bicarb and there was ROSC. EMS then initiated an epi drip. Upon arrival to the ED the patient had a pulse but was hypotensive. The Paul airway was removed and the patient was intubated by myself using 7.0 ET tube. Initial EKG in the ER revealed junctional tachycardia. Since then has been in sinus rhythm. There was one episode of torsade in the ICU. She is currently maintaining sinus rhythm and is on multiple pressors. She is also status post chest tube placement for pneumothorax. Neurologically patient is having spontaneous myoclonic jerks and is not responding. Past History Past Medical History: other (Breast Ca., H/O Cellulitis) Past Surgical History: Other (Port a cath) Social history: other (Unknown) Family history: other (Unknown) Medications and Allergies Allergies Allergy/AdvReac Type Severity Reaction Status Date / Time Unable to Assess Allergy Unverified 11/09/20 01:25 Active Meds: Active Medications Acetaminophen (Acetaminophen 325 Mg/10.15 Ml Oral Liqd Unit Dose) 650 mg FEEDTUBE Q6H PRN PRN Reason: Pain, Mild (1-3) Last Admin: 11/09/20 21:11 Dose: 650 mg Documented by: Dextrose (Dextrose 50% In Water (25gm) 50 Ml Syringe) 0 ml IV Q30MIN PRN; Protocol PRN Reason: Hypoglycemia Famotidine (Famotidine 20 Mg/2 Ml Inj) 20 mg IV BID TROY Last Admin: 11/10/20 10:43 Dose: 20 mg Documented by: Heparin Sodium (Porcine) (Heparin 10,000 Units/10 Ml Vial) 4,100 unit 40 unit/kg (4100 unit) IV Q6H PRN PRN Reason: Anti-Xa Assay<0.1 units/ml Hydrophilic Ointment (Lip Therapy Vaseline) 1 applic TP Q2HR PRN PRN Reason: Dry Lips Amiodarone HCl 900 mg/ (Dextrose) 500 mls @ 33.333 mls/hr IV DIRECT TROY; Protocol Last Admin: 11/10/20 04:32 Dose: 0.5 mg/min, 16.667 mls/hr Documented by: Heparin Sodium/Sodium Chloride (Heparin/ 0.45% Nacl-25,000 Unit/500 Ml) 25,000 unit in 500 mls @ 20 mls/hr IV TITRATE TROY; Protocol Last Admin: 11/10/20 09:29 Dose: 1,000 units/hr, 20 mls/hr Documented by: Piperacillin Sod/Tazobactam Sod (Zosyn/Ns 4.5gm/100ml) 4.5 gm in 100 mls @ 200 mls/hr IV Q8H TROY; Protocol Last Admin: 11/10/20 05:19 Dose: 200 mls/hr Documented by: Fentanyl Citrate (Fentanyl Drip Premix) 2,000 mcg in 100 mls @ 5.15 mls/hr IV TITR TROY; Protocol Last Titration: 11/09/20 23:05 Dose: 0 mcg/kg/hr, 0 mls/hr Documented by: Propofol (Diprivan 10 Mg/Ml) 1,000 mg in 100 mls @ 3.09 mls/hr IV TITR TROY; Protocol Last Admin: 11/10/20 05:19 Dose: 20 mcg/kg/min, 12.36 mls/hr Documented by: Norepinephrine (Levophed Drip 4 Mg/Ns 250 Ml) 4 mg in 250 mls @ 7.5 mls/hr IV TITR TROY; Protocol Last Titration: 11/10/20 11:45 Dose: 20 mcg/min, 75 mls/hr Documented by: Sodium Chloride (Nacl 0.9% 1000 Ml) 1,000 mls @ 150 mls/hr IV DIRECT TROY Last Admin: 11/10/20 11:56 Dose: 150 mls/hr Documented by: Vancomycin HCl 1,750 mg/ (Sodium Chloride) 535 mls @ 267.5 mls/hr IV Q36H TROY Morphine Sulfate (Morphine 2 Mg/1 Ml Inj) 2 mg IV Q4H PRN PRN Reason: Pain, Moderate (4-6) Multi-Ingred Cream/Lotion/Oil/Oint (Mineral Oil/Petrolatum, White Ophth Oint 3.5 Gm) 1 applic OU Q4HR PRN PRN Reason: Dry Eye(s) Ondansetron HCl (Ondansetron 4 Mg/2 Ml Inj) 4 mg IV Q8H PRN PRN Reason: Nausea And Vomiting Senna/Docusate Sodium (Sennosides/Docusate Sodium 8.6/50 Mg Tab) 1 tab FEEDTUBE BID ON LICENSE OF [facility] Last Admin: 11/10/20 10:43 Dose: 1 tab Documented by: Sodium Chloride (Sodium Chloride 0.9% 10 Ml Flush Syringe) 10 ml IV BID ON LICENSE OF [facility] Last Admin: 11/10/20 10:43 Dose: 10 ml Documented by: Sodium Chloride (Sodium Chloride 0.9% 10 Ml Flush Syringe) 10 ml IV PRN PRN PRN Reason: LINE FLUSH Review of Systems ROS unobtainable: due to mental status Physical Examination Vital Signs Pulse Resp 79 15 11/09/20 01:22 11/09/20 01:22 Narrative exam: Patient unresponsive General appearance: no acute distress HEENT: Positive: Normocephaly Neck: Positive: trachea midline Cardiac: Positive: Reg Rate and Rhythm Lungs: Positive: clear to auscultation Neuro: Positive: Other (Patient unresponsive) Abdomen: Positive: Unremarkable Extremities: Present: +1 Edema Results 11/10/20 05:30 11/10/20 05:30 Cardiac Enzymes 11/10/20 Range/Units 05:30 AST 325 H (5-40) units/L Coagulation 11/10/20 Range/Units 05:30 PT 18.7 H (12.2-14.9) Sec. INR 1.50 H (0.87-1.13) CBC 11/10/20 Range/Units 05:30 WBC 31.5 H (4.5-11.0) K/mm3 RBC 4.77 (3.65-5.03) M/mm3 Hgb 12.6 (10.1-14.3) gm/dl Hct 39.7 D (30.3-42.9) % Plt Count 275 (140-440) K/mm3 Comprehensive Metabolic Panel 06/13/21 Range/Units 05:30 Sodium 141 (137-145) mmol/L Potassium 3.5 L (3.6-5.0) mmol/L Chloride 107.9 H (98-107) mmol/L Carbon Dioxide 17 L (22-30) mmol/L BUN 22 H (7-17) mg/dL Creatinine 1.8 H D (0.6-1.2) mg/dL Glucose 129 H (65-100) mg/dL Calcium 6.7 L (8.4-10.2) mg/dL AST 325 H (5-40) units/L ALT 116 H (7-56) units/L Alkaline Phosphatase 182 H (35-129) units/L Total Protein 5.7 L (6.3-8.2) g/dL Albumin 2.6 L (3.9-5) g/dL EKG interpretations - EKG Supraventricular dysrhythmia: junctional rhythm (On presentation. Currently sinus rhythm) Assessment and Plan 1. Out of hospital cardiac arrest 2. Pneumothorax status post chest tube 3. History of breast cancer 4. Septic shock 5. 1 episode of torsade currently maintaining sinus rhythm 6. Acute renal failure Plan 1. Discontinue heparin change to DVT prophylaxis 2. In view of the torsade discontinue amiodarone as well 3. Keep potassium above 4 and magnesium above 2 4. Supportive care 5. 2D echo 6. Extremely guarded prognosis
--- NOTE | 2020-11-10 13:36 | Consultation ---
History of Present Illness - Reason for Consult Consult date: 11/10/20 septic shock Requesting physician: KERRY NASCIMENTO - History of Present Illness The patient is a 55-year-old female with history of breast cancer, cellulitis was admitted to the hospital after she had a cardiac arrest at home, was found to be in asystole in the ER. She was resuscitated, intubated and is currently on mechanical ventilation. She is currently on pressors. Sedated. Unable to provide history. Patient's son is at bedside who saw her about 2 days ago with no known complaints at that time. During ER course,: Patient also had runs of ventricular tachycardia. CTA of the chest revealed a left apical pneumothorax for which he underwent a chest tube placement. Review of Systems: Unable to obtain due to mentation, mechanical ventilation Past History Past Medical History: other (Breast Ca., H/O Cellulitis) Past Surgical History: Other (Port a cath) Social history: other (Unknown) Family history: other (Unknown) Medications and Allergies Allergies Allergy/AdvReac Type Severity Reaction Status Date / Time Unable to Assess Allergy Unverified 11/09/20 01:25 Active Meds: Active Medications Acetaminophen (Acetaminophen 325 Mg/10.15 Ml Oral Liqd Unit Dose) 650 mg FEEDTUBE Q6H PRN PRN Reason: Pain, Mild (1-3) Last Admin: 11/09/20 21:11 Dose: 650 mg Documented by: Dextrose (Dextrose 50% In Water (25gm) 50 Ml Syringe) 0 ml IV Q30MIN PRN; Protocol PRN Reason: Hypoglycemia Enoxaparin Sodium (Enoxaparin 40 Mg/0.4 Ml Inj) 40 mg SUB-Q QDAY@2200 TROY; Protocol Famotidine (Famotidine 20 Mg/2 Ml Inj) 20 mg IV BID TROY Last Admin: 11/10/20 10:43 Dose: 20 mg Documented by: Hydrophilic Ointment (Lip Therapy Vaseline) 1 applic TP Q2HR PRN PRN Reason: Dry Lips Fentanyl Citrate (Fentanyl Drip Premix) 2,000 mcg in 100 mls @ 5.15 mls/hr IV TITR TROY; Protocol Last Titration: 11/09/20 23:05 Dose: 0 mcg/kg/hr, 0 mls/hr Documented by: Propofol (Diprivan 10 Mg/Ml) 1,000 mg in 100 mls @ 3.09 mls/hr IV TITR TROY; Protocol Last Admin: 11/10/20 05:19 Dose: 20 mcg/kg/min, 12.36 mls/hr Documented by: Norepinephrine (Levophed Drip 4 Mg/Ns 250 Ml) 4 mg in 250 mls @ 7.5 mls/hr IV TITR TROY; Protocol Last Titration: 11/10/20 11:45 Dose: 20 mcg/min, 75 mls/hr Documented by: Sodium Chloride (Nacl 0.9% 1000 Ml) 1,000 mls @ 150 mls/hr IV DIRECT TROY Last Admin: 11/10/20 11:56 Dose: 150 mls/hr Documented by: Vancomycin HCl 1,750 mg/ (Sodium Chloride) 535 mls @ 267.5 mls/hr IV Q36H TROY Cefepime HCl (Cefepime/Ns 1 Gm/100 Ml) 1 gm in 100 mls @ 200 mls/hr IV Q12H TROY; Protocol Morphine Sulfate (Morphine 2 Mg/1 Ml Inj) 2 mg IV Q4H PRN PRN Reason: Pain, Moderate (4-6) Multi-Ingred Cream/Lotion/Oil/Oint (Mineral Oil/Petrolatum, White Ophth Oint 3.5 Gm) 1 applic OU Q4HR PRN PRN Reason: Dry Eye(s) Ondansetron HCl (Ondansetron 4 Mg/2 Ml Inj) 4 mg IV Q8H PRN PRN Reason: Nausea And Vomiting Senna/Docusate Sodium (Sennosides/Docusate Sodium 8.6/50 Mg Tab) 1 tab FEEDTUBE BID [facility] Last Admin: 11/10/20 10:43 Dose: 1 tab Documented by: Sodium Chloride (Sodium Chloride 0.9% 10 Ml Flush Syringe) 10 ml IV BID [facility] Last Admin: 11/10/20 10:43 Dose: 10 ml Documented by: Sodium Chloride (Sodium Chloride 0.9% 10 Ml Flush Syringe) 10 ml IV PRN PRN PRN Reason: LINE FLUSH Physical Examination - Physical Exam Narrative exam: Physical Exam: Constitutional: sedated, intubated, on the vent Head, Ears, Nose: Normocephalic, atraumatic. External ears, nose normal Eyes: Conjunctivae/corneas clear. No icterus. No ptosis. Neck: intubated Oral: intubated Cardiovascular: S1, S2 + Respiratory: AE fair bilaterally and equal GI: Soft, bowel sounds hypo Musculoskeletal: No pedal edema, no cyanosis. Skin: No rash or abscess Hem/Lymphatic: No palpable cervical or supraclavicular nodes. No lymphangitis Psych: no agitation Neurological: sedated, intubated, on the vent, exam limited - Constitutional Vitals: Vital Signs Temp Pulse Resp BP Pulse Ox 102.5 F H 80 31 H 89/46 100 11/10/20 13:22 11/10/20 11:19 11/10/20 08:00 11/10/20 11:19 11/10/20 11:19 Temperature -Last 24 Hours Temperature 102.5 F Temperature 103.1 F Temperature 103.2 F Temperature 103.3 F Temperature 103.2 F Temperature 103.1 F Temperature 103.1 F Temperature 100.4 F Temperature 104 F Temperature 102.8 F Results - Labs CBC & Chem 7: 11/10/20 05:30 11/10/20 05:30 Labs: Abnormal lab results 11/09/20 11/09/20 11/09/20 Range/Units 12:48 14:38 15:01 WBC (4.5-11.0) K/mm3 MCH (28-32) pg RDW (13.2-15.2) % Seg Neuts % (Manual) (40.0-70.0) % Lymphocytes % (Manual) (13.4-35.0) % Seg Neutrophils # Man (1.8-7.7) K/mm3 Monocytes # (Manual) (0.0-0.8) K/mm3 PT (12.2-14.9) Sec. INR (0.87-1.13) ABG pH (7.320-7.450) POC ABG pCO2 31.9 L (32.0-48.0) mmHg POC ABG pO2 63.6 L (83-108) mmHg ABG Oxyhemoglobin 91.8 L (94-98) ABG Chloride (98-107) mmol/L ABG Glucose 161 H (65-95) mg/dL Potassium (3.6-5.0) mmol/L Chloride (98-107) mmol/L Carbon Dioxide (22-30) mmol/L BUN (7-17) mg/dL Creatinine (0.6-1.2) mg/dL Glucose (65-100) mg/dL POC Glucose 159 H (70-105) mg/dL Lactic Acid 3.70 H* (0.7-2.0) mmol/L Calcium (8.4-10.2) mg/dL Phosphorus (2.5-4.5) mg/dL AST (5-40) units/L ALT (7-56) units/L Alkaline Phosphatase (35-129) units/L Total Protein (6.3-8.2) g/dL Albumin (3.9-5) g/dL Arterial Blood Glucose 161 H (65-95) mg/dL Arterial Blood Ionized Calcium 4.3 L (4.6-5.3) mg/dL Ur Specific [place] (1.003-1.030) Urine WBC (Auto) (0.0-6.0) /HPF 11/09/20 11/09/20 11/09/20 Range/Units 15:45 16:20 18:28 WBC (4.5-11.0) K/mm3 MCH (28-32) pg RDW (13.2-15.2) % Seg Neuts % (Manual) (40.0-70.0) % Lymphocytes % (Manual) (13.4-35.0) % Seg Neutrophils # Man (1.8-7.7) K/mm3 Monocytes # (Manual) (0.0-0.8) K/mm3 PT (12.2-14.9) Sec. INR (0.87-1.13) ABG pH (7.320-7.450) POC ABG pCO2 (32.0-48.0) mmHg POC ABG pO2 (83-108) mmHg ABG Oxyhemoglobin (94-98) ABG Chloride (98-107) mmol/L ABG Glucose (65-95) mg/dL Potassium (3.6-5.0) mmol/L Chloride (98-107) mmol/L Carbon Dioxide (22-30) mmol/L BUN (7-17) mg/dL Creatinine (0.6-1.2) mg/dL Glucose (65-100) mg/dL POC Glucose 138 H (70-105) mg/dL Lactic Acid (0.7-2.0) mmol/L Calcium (8.4-10.2) mg/dL Phosphorus 1.70 L (2.5-4.5) mg/dL AST (5-40) units/L ALT (7-56) units/L Alkaline Phosphatase (35-129) units/L Total Protein (6.3-8.2) g/dL Albumin (3.9-5) g/dL Arterial Blood Glucose (65-95) mg/dL Arterial Blood Ionized Calcium (4.6-5.3) mg/dL Ur Specific [place] 1.053 H (1.003-1.030) Urine WBC (Auto) 13.0 H (0.0-6.0) /HPF 11/09/20 11/10/20 11/10/20 Range/Units 23:26 05:30 05:30 WBC 31.5 H (4.5-11.0) K/mm3 MCH 27 L (28-32) pg RDW 15.8 H (13.2-15.2) % Seg Neuts % (Manual) 91.0 H (40.0-70.0) % Lymphocytes % (Manual) 4.0 L (13.4-35.0) % Seg Neutrophils # Man 28.7 H (1.8-7.7) K/mm3 Monocytes # (Manual) 1.4 H (0.0-0.8) K/mm3 PT 18.7 H (12.2-14.9) Sec. INR 1.50 H (0.87-1.13) ABG pH (7.320-7.450) POC ABG pCO2 (32.0-48.0) mmHg POC ABG pO2 (83-108) mmHg ABG Oxyhemoglobin (94-98) ABG Chloride (98-107) mmol/L ABG Glucose (65-95) mg/dL Potassium (3.6-5.0) mmol/L Chloride (98-107) mmol/L Carbon Dioxide (22-30) mmol/L BUN (7-17) mg/dL Creatinine (0.6-1.2) mg/dL Glucose (65-100) mg/dL POC Glucose 119 H (70-105) mg/dL Lactic Acid (0.7-2.0) mmol/L Calcium (8.4-10.2) mg/dL Phosphorus (2.5-4.5) mg/dL AST (5-40) units/L ALT (7-56) units/L Alkaline Phosphatase (35-129) units/L Total Protein (6.3-8.2) g/dL Albumin (3.9-5) g/dL Arterial Blood Glucose (65-95) mg/dL Arterial Blood Ionized Calcium (4.6-5.3) mg/dL Ur Specific [place] (1.003-1.030) Urine WBC (Auto) (0.0-6.0) /HPF 11/10/20 11/10/20 11/10/20 Range/Units 05:30 05:30 09:49 WBC (4.5-11.0) K/mm3 MCH (28-32) pg RDW (13.2-15.2) % Seg Neuts % (Manual) (40.0-70.0) % Lymphocytes % (Manual) (13.4-35.0) % Seg Neutrophils # Man (1.8-7.7) K/mm3 Monocytes # (Manual) (0.0-0.8) K/mm3 PT (12.2-14.9) Sec. INR (0.87-1.13) ABG pH 7.188 L (7.320-7.450) POC ABG pCO2 (32.0-48.0) mmHg POC ABG pO2 149.6 H (83-108) mmHg ABG Oxyhemoglobin (94-98) ABG Chloride 111.0 H (98-107) mmol/L ABG Glucose 124 H (65-95) mg/dL Potassium 3.5 L (3.6-5.0) mmol/L Chloride 107.9 H (98-107) mmol/L Carbon Dioxide 17 L (22-30) mmol/L BUN 22 H (7-17) mg/dL Creatinine 1.8 H D (0.6-1.2) mg/dL Glucose 129 H (65-100) mg/dL POC Glucose (70-105) mg/dL Lactic Acid 2.60 H* (0.7-2.0) mmol/L Calcium 6.7 L (8.4-10.2) mg/dL Phosphorus (2.5-4.5) mg/dL AST 325 H (5-40) units/L ALT 116 H (7-56) units/L Alkaline Phosphatase 182 H (35-129) units/L Total Protein 5.7 L (6.3-8.2) g/dL Albumin 2.6 L (3.9-5) g/dL Arterial Blood Glucose 124 H (65-95) mg/dL Arterial Blood Ionized Calcium 3.9 L (4.6-5.3) mg/dL Ur Specific [place] (1.003-1.030) Urine WBC (Auto) (0.0-6.0) /HPF - Imaging and Cardiology Chest x-ray: report reviewed, image reviewed (PORT +, no obvious pneumonia) Assessment and Plan Cultures: 11/09/2020 tracheal aspirate culture: In process 11/09/2020 blood culture: No growth COVID-19 PCR: Negative Hepatitis panel: Negative A/P: 55-year-old female with history of breast cancer, cellulitis was admitted to the hospital after she had a cardiac arrest at home, was found to be in asystole in the ER: #Asystolic cardiac arrest #Shock: Unclear etiology. Labs with significant leukocytosis which could be stress reaction versus infectious process. CT chest showed faint patchy pulmonary opacities, no dense pneumonia as such -probably some aspiration pneumonitis. UA with minimal pyuria. Does have indwelling port, rule out bacteremia. Per son, patient with no recent infections or illness. #Acute kidney injury: Renally dose antibiotics. #Transaminitis: Likely shock liver #Acute encephalopathy Recs: Empiric cefepime, vancomycin, renally dosed Follow-up blood cultures monitor WBC Tessie Salazar MD, FACP [facility] ([facility] O: [phone] F: [phone]
--- NOTE | 2020-11-10 15:00 | Gastroenterology Progress Note ---
Assessment and Plan - Patient Problems (1) Elevated liver enzymes Current Visit: Yes Status: Acute Plan to address problem: - Given the elevated WBC and lactic acid and cardiac arrest at home, highly suspicious of acute ischemic liver injury/shock liver. - Routine hepatitis serologies negative, and labs stable over 24 hours. - At present, no contraindications to amiodarone or other meds. - Given hx of breast CA, needs a CT with IV contrast, but worsening renal status (and unresolved Neuro issues) preclude this at present/not critical. - For now, continue current supportive care; no further GI recs at present. Will sign off; please call if needed. Subjective Date of service: 11/10/20 Principal diagnosis: Abnl LFT Interval history: There has been no acute change in status. Still unresponsive with myoclonic jerking. Objective - Constitutional Vitals: Temp Pulse Resp BP Pulse Ox 102.5 F H 83 27 H 90/56 95 11/10/20 13:22 11/10/20 13:45 11/10/20 13:45 11/10/20 13:45 11/10/20 13:45 General appearance: other (Intubated) - Respiratory Respiratory effort: normal Respiratory: bilateral: CTA (Vent) - Cardiovascular Rhythm: regular Heart Sounds: Present: S1 & S2 - Gastrointestinal General gastrointestinal: Present: soft, non-tender, non-distended - Labs CBC & Chem 7: 11/10/20 05:30 11/10/20 05:30 Labs: Laboratory Results - last 24 hr 11/09/20 11/09/20 11/09/20 12:48 15:01 15:01 WBC RBC Hgb Hct MCV MCH MCHC RDW Plt Count Add Manual Diff Total Counted Seg Neuts % (Manual) Band Neutrophils % Lymphocytes % (Manual) Monocytes % (Manual) Nucleated RBC % Seg Neutrophils # Man Band Neutrophils # Lymphocytes # (Manual) Abs React Lymphs (Man) Monocytes # (Manual) Eosinophils # (Manual) Basophils # (Manual) Metamyelocytes # Myelocytes # Promyelocytes # Blast Cells # WBC Morphology Hypersegmented Neuts Hyposegmented Neuts Hypogranular Neuts Smudge Cells Toxic Granulation Toxic Vacuolation Dohle Bodies Pelger-Huet Anomaly Latia Rods Platelet Estimate Clumped Platelets Plt Clumps, EDTA Large Platelets Giant Platelets Platelet Satelliting Plt Morphology Comment RBC Morphology Dimorphic RBCs Polychromasia Hypochromasia Poikilocytosis Anisocytosis Microcytosis Macrocytosis Spherocytes Pappenheimer Bodies Sickle Cells Target Cells Tear Drop Cells Ovalocytes Helmet Cells Trevizo-Regan Bodies [place] Rings [place] Cells Bite Cells Crenated Cell Elliptocytes Acanthocytes (Spur) Rouleaux Hemoglobin C Crystals Schistocytes Malaria parasites Bebeto Bodies Hem Pathologist Commnt PT INR Heparin Anti-Xa Level 0.43 ABG pH POC ABG pCO2 POC ABG pO2 POC ABG HCO3 ABG O2 Saturation POC ABG Base Excess ABG Hemoglobin ABG Oxyhemoglobin ABG Methemoglobin ABG Sodium ABG Potassium ABG Chloride ABG Glucose Carboxyhemoglobin FiO2 % Sodium Potassium Chloride Carbon Dioxide Anion Gap BUN Creatinine Estimated GFR BUN/Creatinine Ratio Glucose POC Glucose 159 H Lactic Acid 3.70 H* Calcium Phosphorus Magnesium Total Bilirubin AST ALT Alkaline Phosphatase Total Protein Albumin Albumin/Globulin Ratio Procalcitonin Arterial Blood Glucose Arterial Blood Ionized Calcium Urine Color Urine Turbidity Urine pH Ur Specific [place] Urine Protein Urine Glucose (UA) Urine Ketones Urine Blood Urine Nitrite Urine Bilirubin Urine Urobilinogen Ur Leukocyte Esterase Urine WBC (Auto) Urine RBC (Auto) U Epithel Cells (Auto) Urine Bacteria (Auto) Urine Mucus Urine Opiates Screen Urine Methadone Screen Ur Barbiturates Screen Ur Phencyclidine Scrn Ur Amphetamines Screen U Benzodiazepines Scrn Urine Cocaine Screen U Marijuana (THC) Screen Drugs of Abuse Note Hepatitis A IgM Ab Hep Bs Antigen Hep B Core IgM Ab Hepatitis C Antibody 11/09/20 11/09/20 11/09/20 15:45 15:45 16:20 WBC RBC Hgb Hct MCV MCH MCHC RDW Plt Count Add Manual Diff Total Counted Seg Neuts % (Manual) Band Neutrophils % Lymphocytes % (Manual) Monocytes % (Manual) Nucleated RBC % Seg Neutrophils # Man Band Neutrophils # Lymphocytes # (Manual) Abs React Lymphs (Man) Monocytes # (Manual) Eosinophils # (Manual) Basophils # (Manual) Metamyelocytes # Myelocytes # Promyelocytes # Blast Cells # WBC Morphology Hypersegmented Neuts Hyposegmented Neuts Hypogranular Neuts Smudge Cells Toxic Granulation Toxic Vacuolation Dohle Bodies Pelger-Huet Anomaly Latia Rods Platelet Estimate Clumped Platelets Plt Clumps, EDTA Large Platelets Giant Platelets Platelet Satelliting Plt Morphology Comment RBC Morphology Dimorphic RBCs Polychromasia Hypochromasia Poikilocytosis Anisocytosis Microcytosis Macrocytosis Spherocytes Pappenheimer Bodies Sickle Cells Target Cells Tear Drop Cells Ovalocytes Helmet Cells Trevizo-Regan Bodies [place] Cells Bite Cells Crenated Cell Elliptocytes Acanthocytes (Spur) Rouleaux Hemoglobin C Crystals Schistocytes Malaria parasites Bebeto Bodies Hem Pathologist Commnt PT INR Heparin Anti-Xa Level ABG pH POC ABG pCO2 POC ABG pO2 POC ABG HCO3 ABG O2 Saturation POC ABG Base Excess ABG Hemoglobin ABG Oxyhemoglobin ABG Methemoglobin ABG Sodium ABG Potassium ABG Chloride ABG Glucose Carboxyhemoglobin FiO2 % Sodium Potassium Chloride Carbon Dioxide Anion Gap BUN Creatinine Estimated GFR BUN/Creatinine Ratio Glucose POC Glucose Lactic Acid Calcium Phosphorus 1.70 L Magnesium Total Bilirubin AST ALT Alkaline Phosphatase Total Protein Albumin Albumin/Globulin Ratio Procalcitonin Arterial Blood Glucose Arterial Blood Ionized Calcium Urine Color Yellow Urine Turbidity Slightly-cloudy Urine pH 5.0 Ur Specific [place] 1.053 H Urine Protein 100 mg/dl Urine Glucose (UA) 50 Urine Ketones Neg Urine Blood Mod Urine Nitrite Neg Urine Bilirubin Neg Urine Urobilinogen < 2.0 Ur Leukocyte Esterase Neg Urine WBC (Auto) 13.0 H Urine RBC (Auto) 56.0 U Epithel Cells (Auto) < 1.0 Urine Bacteria (Auto) 2+ Urine Mucus Few Urine Opiates Screen Negative Urine Methadone Screen Negative Ur Barbiturates Screen Negative Ur Phencyclidine Scrn Negative Ur Amphetamines Screen Negative U Benzodiazepines Scrn Negative Urine Cocaine Screen Negative U Marijuana (THC) Screen Negative Drugs of Abuse Note Disclamer Hepatitis A IgM Ab Hep Bs Antigen Hep B Core IgM Ab Hepatitis C Antibody 11/09/20 11/09/20 11/09/20 16:20 18:28 21:07 WBC RBC Hgb Hct MCV MCH MCHC RDW Plt Count Add Manual Diff Total Counted Seg Neuts % (Manual) Band Neutrophils % Lymphocytes % (Manual) Monocytes % (Manual) Nucleated RBC % Seg Neutrophils # Man Band Neutrophils # Lymphocytes # (Manual) Abs React Lymphs (Man) Monocytes # (Manual) Eosinophils # (Manual) Basophils # (Manual) Metamyelocytes # Myelocytes # Promyelocytes # Blast Cells # WBC Morphology Hypersegmented Neuts Hyposegmented Neuts Hypogranular Neuts Smudge Cells Toxic Granulation Toxic Vacuolation Dohle Bodies Pelger-Huet Anomaly Latia Rods Platelet Estimate Clumped Platelets Plt Clumps, EDTA Large Platelets Giant Platelets Platelet Satelliting Plt Morphology Comment RBC Morphology Dimorphic RBCs Polychromasia Hypochromasia Poikilocytosis Anisocytosis Microcytosis Macrocytosis Spherocytes Pappenheimer Bodies Sickle Cells Target Cells Tear Drop Cells Ovalocytes Helmet Cells Trevizo-Regan Bodies [place] Cells Bite Cells Crenated Cell Elliptocytes Acanthocytes (Spur) Rouleaux Hemoglobin C Crystals Schistocytes Malaria parasites Bebeto Bodies Hem Pathologist Commnt PT INR Heparin Anti-Xa Level 0.44 ABG pH POC ABG pCO2 POC ABG pO2 POC ABG HCO3 ABG O2 Saturation POC ABG Base Excess ABG Hemoglobin ABG Oxyhemoglobin ABG Methemoglobin ABG Sodium ABG Potassium ABG Chloride ABG Glucose Carboxyhemoglobin FiO2 % Sodium Potassium Chloride Carbon Dioxide Anion Gap BUN Creatinine Estimated GFR BUN/Creatinine Ratio Glucose POC Glucose 138 H Lactic Acid Calcium Phosphorus Magnesium Total Bilirubin AST ALT Alkaline Phosphatase Total Protein Albumin Albumin/Globulin Ratio Procalcitonin 127.54 Arterial Blood Glucose Arterial Blood Ionized Calcium Urine Color Urine Turbidity Urine pH Ur Specific [place] Urine Protein Urine Glucose (UA) Urine Ketones Urine Blood Urine Nitrite Urine Bilirubin Urine Urobilinogen Ur Leukocyte Esterase Urine WBC (Auto) Urine RBC (Auto) U Epithel Cells (Auto) Urine Bacteria (Auto) Urine Mucus Urine Opiates Screen Urine Methadone Screen Ur Barbiturates Screen Ur Phencyclidine Scrn Ur Amphetamines Screen U Benzodiazepines Scrn Urine Cocaine Screen U Marijuana (THC) Screen Drugs of Abuse Note Hepatitis A IgM Ab Hep Bs Antigen Hep B Core IgM Ab Hepatitis C Antibody 11/09/20 11/10/20 11/10/20 23:26 05:30 05:30 WBC 31.5 H RBC 4.77 Hgb 12.6 Hct 39.7 D MCV 83 MCH 27 L MCHC 32 RDW 15.8 H Plt Count 275 Add Manual Diff Complete Total Counted 200 Seg Neuts % (Manual) 91.0 H Band Neutrophils % 0.5 Lymphocytes % (Manual) 4.0 L Monocytes % (Manual) 4.5 Nucleated RBC % 0.5 Seg Neutrophils # Man 28.7 H Band Neutrophils # 0.2 Lymphocytes # (Manual) 1.3 Abs React Lymphs (Man) 0.0 Monocytes # (Manual) 1.4 H Eosinophils # (Manual) 0.0 Basophils # (Manual) 0.0 Metamyelocytes # 0.0 Myelocytes # 0.0 Promyelocytes # 0.0 Blast Cells # 0.0 WBC Morphology Not Reportable Hypersegmented Neuts Not Reportable Hyposegmented Neuts Not Reportable Hypogranular Neuts Not Reportable Smudge Cells Not Reportable Toxic Granulation Not Reportable Toxic Vacuolation Not Reportable Dohle Bodies Not Reportable Pelger-Huet Anomaly Not Reportable Latia Rods Not Reportable Platelet Estimate Consistent w auto Clumped Platelets Not Reportable Plt Clumps, EDTA Not Reportable Large Platelets Not Reportable Giant Platelets Not Reportable Platelet Satelliting Not Reportable Plt Morphology Comment Not Reportable RBC Morphology Not Reportable Dimorphic RBCs Not Reportable Polychromasia Not Reportable Hypochromasia Not Reportable Poikilocytosis Not Reportable Anisocytosis 1+ Microcytosis Not Reportable Macrocytosis Not Reportable Spherocytes Not Reportable Pappenheimer Bodies Not Reportable Sickle Cells Not Reportable Target Cells Not Reportable Tear Drop Cells Not Reportable Ovalocytes Not Reportable Helmet Cells Not Reportable Trevizo-Regan Bodies Not Reportable [place] Rings Not Reportable Ty Cells Not Reportable Bite Cells Not Reportable Crenated Cell Not Reportable Elliptocytes Not Reportable Acanthocytes (Spur) Not Reportable Rouleaux Not Reportable Hemoglobin C Crystals Not Reportable Schistocytes Not Reportable Malaria parasites Not Reportable Bebeto Bodies Not Reportable Hem Pathologist Commnt No PT 18.7 H INR 1.50 H Heparin Anti-Xa Level ABG pH POC ABG pCO2 POC ABG pO2 POC ABG HCO3 ABG O2 Saturation POC ABG Base Excess ABG Hemoglobin ABG Oxyhemoglobin ABG Methemoglobin ABG Sodium ABG Potassium ABG Chloride ABG Glucose Carboxyhemoglobin FiO2 % Sodium Potassium Chloride Carbon Dioxide Anion Gap BUN Creatinine Estimated GFR BUN/Creatinine Ratio Glucose POC Glucose 119 H Lactic Acid Calcium Phosphorus Magnesium Total Bilirubin AST ALT Alkaline Phosphatase Total Protein Albumin Albumin/Globulin Ratio Procalcitonin Arterial Blood Glucose Arterial Blood Ionized Calcium Urine Color Urine Turbidity Urine pH Ur Specific [place] Urine Protein Urine Glucose (UA) Urine Ketones Urine Blood Urine Nitrite Urine Bilirubin Urine Urobilinogen Ur Leukocyte Esterase Urine WBC (Auto) Urine RBC (Auto) U Epithel Cells (Auto) Urine Bacteria (Auto) Urine Mucus Urine Opiates Screen Urine Methadone Screen Ur Barbiturates Screen Ur Phencyclidine Scrn Ur Amphetamines Screen U Benzodiazepines Scrn Urine Cocaine Screen U Marijuana (THC) Screen Drugs of Abuse Note Hepatitis A IgM Ab Hep Bs Antigen Hep B Core IgM Ab Hepatitis C Antibody 11/10/20 11/10/20 11/10/20 05:30 05:30 05:30 WBC RBC Hgb Hct MCV MCH MCHC RDW Plt Count Add Manual Diff Total Counted Seg Neuts % (Manual) Band Neutrophils % Lymphocytes % (Manual) Monocytes % (Manual) Nucleated RBC % Seg Neutrophils # Man Band Neutrophils # Lymphocytes # (Manual) Abs React Lymphs (Man) Monocytes # (Manual) Eosinophils # (Manual) Basophils # (Manual) Metamyelocytes # Myelocytes # Promyelocytes # Blast Cells # WBC Morphology Hypersegmented Neuts Hyposegmented Neuts Hypogranular Neuts Smudge Cells Toxic Granulation Toxic Vacuolation Dohle Bodies Pelger-Huet Anomaly Latia Rods Platelet Estimate Clumped Platelets Plt Clumps, EDTA Large Platelets Giant Platelets Platelet Satelliting Plt Morphology Comment RBC Morphology Dimorphic RBCs Polychromasia Hypochromasia Poikilocytosis Anisocytosis Microcytosis Macrocytosis Spherocytes Pappenheimer Bodies Sickle Cells Target Cells Tear Drop Cells Ovalocytes Helmet Cells Trevizo-Regan Bodies [place] Rings [place] Cells Bite Cells Crenated Cell Elliptocytes Acanthocytes (Spur) Rouleaux Hemoglobin C Crystals Schistocytes Malaria parasites Bebeto Bodies Hem Pathologist Commnt PT INR Heparin Anti-Xa Level ABG pH POC ABG pCO2 POC ABG pO2 POC ABG HCO3 ABG O2 Saturation POC ABG Base Excess ABG Hemoglobin ABG Oxyhemoglobin ABG Methemoglobin ABG Sodium ABG Potassium ABG Chloride ABG Glucose Carboxyhemoglobin FiO2 % Sodium 141 Potassium 3.5 L Chloride 107.9 H Carbon Dioxide 17 L Anion Gap 20 BUN 22 H Creatinine 1.8 H D Estimated GFR 29 BUN/Creatinine Ratio 12 Glucose 129 H POC Glucose Lactic Acid 2.60 H* Calcium 6.7 L Phosphorus Magnesium 2.00 Total Bilirubin 0.50 AST 325 H ALT 116 H Alkaline Phosphatase 182 H Total Protein 5.7 L Albumin 2.6 L Albumin/Globulin Ratio 0.8 Procalcitonin Arterial Blood Glucose Arterial Blood Ionized Calcium Urine Color Urine Turbidity Urine pH Ur Specific [place] Urine Protein Urine Glucose (UA) Urine Ketones Urine Blood Urine Nitrite Urine Bilirubin Urine Urobilinogen Ur Leukocyte Esterase Urine WBC (Auto) Urine RBC (Auto) U Epithel Cells (Auto) Urine Bacteria (Auto) Urine Mucus Urine Opiates Screen Urine Methadone Screen Ur Barbiturates Screen Ur Phencyclidine Scrn Ur Amphetamines Screen U Benzodiazepines Scrn Urine Cocaine Screen U Marijuana (THC) Screen Drugs of Abuse Note Hepatitis A IgM Ab Non-reactive Hep Bs Antigen Non-reactive Hep B Core IgM Ab Non-reactive Hepatitis C Antibody Non-reactive 11/10/20 11/10/20 11/10/20 05:44 09:49 13:04 WBC RBC Hgb Hct MCV MCH MCHC RDW Plt Count Add Manual Diff Total Counted Seg Neuts % (Manual) Band Neutrophils % Lymphocytes % (Manual) Monocytes % (Manual) Nucleated RBC % Seg Neutrophils # Man Band Neutrophils # Lymphocytes # (Manual) Abs React Lymphs (Man) Monocytes # (Manual) Eosinophils # (Manual) Basophils # (Manual) Metamyelocytes # Myelocytes # Promyelocytes # Blast Cells # WBC Morphology Hypersegmented Neuts Hyposegmented Neuts Hypogranular Neuts Smudge Cells Toxic Granulation Toxic Vacuolation Dohle Bodies Pelger-Huet Anomaly Latia Rods Platelet Estimate Clumped Platelets Plt Clumps, EDTA Large Platelets Giant Platelets Platelet Satelliting Plt Morphology Comment RBC Morphology Dimorphic RBCs Polychromasia Hypochromasia Poikilocytosis Anisocytosis Microcytosis Macrocytosis Spherocytes Pappenheimer Bodies Sickle Cells Target Cells Tear Drop Cells Ovalocytes Helmet Cells Trevizo-Regan Bodies [place] Rings [place] Cells Bite Cells Crenated Cell Elliptocytes Acanthocytes (Spur) Rouleaux Hemoglobin C Crystals Schistocytes Malaria parasites Bebeto Bodies Hem Pathologist Commnt PT INR Heparin Anti-Xa Level ABG pH 7.188 L POC ABG pCO2 32.7 POC ABG pO2 149.6 H POC ABG HCO3 12.2 ABG O2 Saturation 98.8 POC ABG Base Excess -14.9 ABG Hemoglobin 12.9 ABG Oxyhemoglobin 97.8 ABG Methemoglobin 0.3 ABG Sodium 137.3 ABG Potassium 3.7 ABG Chloride 111.0 H ABG Glucose 124 H Carboxyhemoglobin 0.7 FiO2 % 100.0 Sodium Potassium Chloride Carbon Dioxide Anion Gap BUN Creatinine Estimated GFR BUN/Creatinine Ratio Glucose POC Glucose 99 86 Lactic Acid Calcium Phosphorus Magnesium Total Bilirubin AST ALT Alkaline Phosphatase Total Protein Albumin Albumin/Globulin Ratio Procalcitonin Arterial Blood Glucose 124 H Arterial Blood Ionized Calcium 3.9 L Urine Color Urine Turbidity Urine pH Ur Specific [place] Urine Protein Urine Glucose (UA) Urine Ketones Urine Blood Urine Nitrite Urine Bilirubin Urine Urobilinogen Ur Leukocyte Esterase Urine WBC (Auto) Urine RBC (Auto) U Epithel Cells (Auto) Urine Bacteria (Auto) Urine Mucus Urine Opiates Screen Urine Methadone Screen Ur Barbiturates Screen Ur Phencyclidine Scrn Ur Amphetamines Screen U Benzodiazepines Scrn Urine Cocaine Screen U Marijuana (THC) Screen Drugs of Abuse Note Hepatitis A IgM Ab Hep Bs Antigen Hep B Core IgM Ab Hepatitis C Antibody
[2020-11-10] MEDS ORDERED: CEFEPIME/NS 1 GM/100 ML 1 GM/100 ML BAG IV SCH (16:00)
--- NOTE | 2020-11-10 16:10 | Progress Note ---
Assessment and Plan Acute hypoxemic respiratory failure Cardiac arrest with ROSC Bilateral pneumonia Left lower lobe atelectasis H/O metastatic colon cancer Pulmonary metastasis Septic Shock Leukocytosis Obesity Metabolic acidosis Elevated serum transaminases Possible CMOP with elevated serum BNP NSTEMI - continue to wean supplemental oxygen for target O2 sat's > 90% acutely - VAP bundle addressed - continue lung protective strategies - continue bronchodilators with pulmonary hygiene per RT - wean per pulmonary driven protocols otherwise - avoid nephrotoxins, renally dose all medications - continue to avoid benzodiazepine's, reduce the possibility of delirium - complete AB's per ID rec's - continue Daily SAT and SBT assessment as tolerated - continue accuchecks with glycemic control per SSI (While critically ill target blood glucose of 140-180 mg/dL; avoid hypoglycemia) - sedation prn for target RASS 0 to -1 - prn analgesia per CPOT score - Maintenance of sleep-wake cycle, avoid delirium - continue enteral nutritional support at goal rate as tolerated - G.I. & VTE prophylaxis - PT/OT/ROM exercises - continue mobility protocols for pressure ulcer prophylaxis - Monitor hemodynamics closely - continue other care per attending / other consultants - discharge planning ongoing concurrently COVID SPECIFIC INTERVENTIONS - COVID-19 assay negative .... Re-evaluate in am & prn CONDITION: CRITICAL PROGNOSIS: GUARDED CODE STATUS: FULL CODE The high probability of a clinically significant, sudden or life-threatening deterioration of the [respiratory, cardiovascular & neurologic] system(s) required my full and direct attention, intervention and personal management. The aggregate critical care time was [31] minutes without overlap. Time includes spent on; [x] Data Review and interpretation [x] Patient assessment and monitoring of vital signs [x] Documentation [x] Medication orders and management Subjective Date of service: 11/10/20 Principal diagnosis: Ac hypoxemic resp failure; Cardiac arrest; Pneumonia; Se ptic Shock; NSTEMI Interval history: Patient is seen today for: Acute hypoxemic respiratory failure; Cardiac arrest with ROSC; Bilateral pneumonia; H/O metastatic colon cancer; Pulmonary metastasis; Septic Shock; NSTEMI Seen and examined at bedside; 24hour events reviewed; nursing and respiratory care staff consulted; no adverse overnight events reported to me; resting in bed; Objective Vital Signs - 12hr 11/10/20 11/10/20 11/10/20 04:15 04:30 04:45 Temperature Pulse Rate 86 85 84 Respiratory 19 21 28 H Rate Blood Pressure 106/65 91/65 107/65 O2 Sat by Pulse 93 91 92 Oximetry 11/10/20 11/10/20 11/10/20 05:00 05:15 05:30 Temperature Pulse Rate 85 84 83 Respiratory 20 21 24 Rate Blood Pressure 103/59 102/62 93/43 O2 Sat by Pulse 93 92 92 Oximetry 11/10/20 11/10/20 11/10/20 05:45 06:00 06:15 Temperature Pulse Rate 82 82 82 Respiratory 21 24 27 H Rate Blood Pressure 93/51 91/48 88/51 O2 Sat by Pulse 90 91 92 Oximetry 11/10/20 11/10/20 11/10/20 06:30 06:45 07:00 Temperature Pulse Rate 82 83 82 Respiratory 26 H 24 24 Rate Blood Pressure 95/53 94/54 94/54 O2 Sat by Pulse 92 93 93 Oximetry 11/10/20 11/10/20 11/10/20 07:15 07:30 07:42 Temperature 103.1 F H Pulse Rate 83 82 82 Respiratory 19 22 Rate Blood Pressure 96/58 106/57 106/57 O2 Sat by Pulse 95 87 92 Oximetry 11/10/20 11/10/20 11/10/20 07:45 08:00 08:15 Temperature Pulse Rate 83 82 82 Respiratory 21 22 22 Rate Blood Pressure 88/65 103/58 84/61 O2 Sat by Pulse 92 96 95 Oximetry 11/10/20 11/10/20 11/10/20 08:30 08:45 09:00 Temperature Pulse Rate 82 81 82 Respiratory 21 21 21 Rate Blood Pressure 85/64 94/61 99/57 O2 Sat by Pulse 98 97 99 Oximetry 11/10/20 11/10/20 11/10/20 09:15 09:30 09:45 Temperature Pulse Rate 79 80 81 Respiratory 21 22 22 Rate Blood Pressure 93/56 86/49 100/64 O2 Sat by Pulse 100 100 100 Oximetry 11/10/20 11/10/20 11/10/20 10:00 10:15 10:30 Temperature Pulse Rate 81 81 81 Respiratory 21 23 24 Rate Blood Pressure 99/61 96/55 94/52 O2 Sat by Pulse 99 100 100 Oximetry 11/10/20 11/10/20 11/10/20 10:45 11:00 11:16 Temperature Pulse Rate 81 81 80 Respiratory 21 22 21 Rate Blood Pressure 92/55 92/61 89/46 O2 Sat by Pulse 100 100 100 Oximetry 11/10/20 11/10/20 11/10/20 11:19 11:30 11:45 Temperature Pulse Rate 80 81 81 Respiratory 24 21 Rate Blood Pressure 89/46 87/48 84/51 O2 Sat by Pulse 100 100 100 Oximetry 11/10/20 11/10/20 11/10/20 12:00 12:16 12:30 Temperature Pulse Rate 82 82 84 Respiratory 24 24 Rate Blood Pressure 93/55 97/46 109/37 O2 Sat by Pulse 99 90 92 Oximetry 11/10/20 11/10/20 11/10/20 12:45 13:00 13:15 Temperature Pulse Rate 82 82 82 Respiratory 21 22 30 H Rate Blood Pressure 84/48 86/54 88/56 O2 Sat by Pulse 91 100 96 Oximetry 11/10/20 11/10/20 11/10/20 13:22 13:30 13:45 Temperature 102.5 F H Pulse Rate 83 83 Respiratory 28 H 27 H Rate Blood Pressure 88/54 90/56 O2 Sat by Pulse 93 95 Oximetry 11/10/20 11/10/20 11/10/20 14:00 14:15 14:30 Temperature Pulse Rate 83 84 84 Respiratory 27 H 30 H 24 Rate Blood Pressure 91/54 92/43 90/55 O2 Sat by Pulse 97 95 Oximetry 11/10/20 11/10/20 11/10/20 14:45 15:00 15:24 Temperature Pulse Rate 84 84 85 Respiratory 30 H 28 H Rate Blood Pressure 91/53 87/53 95/55 O2 Sat by Pulse 95 100 94 Oximetry CBC and BMP: 11/10/20 05:30 11/10/20 05:30 ABG, PT/INR, D-dimer: ABG ABG pH 7.188 (7.320-7.450) L 11/10/20 09:49 POC ABG pCO2 32.7 mmHg (32.0-48.0) 11/10/20 09:49 ABG pCO2 36.4 mm Hg 11/09/20 09:01 POC ABG pO2 149.6 mmHg (83-108) H 11/10/20 09:49 ABG pO2 154.8 mm Hg (80.0-90.0) H 11/09/20 09:01 POC ABG HCO3 12.2 11/10/20 09:49 ABG O2 Saturation 98.8 (0-100) 11/10/20 09:49 PT/INR, D-dimer PT 18.7 Sec. (12.2-14.9) H 11/10/20 05:30 INR 1.50 (0.87-1.13) H 11/10/20 05:30 Abnormal lab findings: Abnormal Labs 11/09/20 11/09/20 11/09/20 01:39 01:43 01:43 WBC 34.3 H Hgb Hct MCH 27 L RDW 15.4 H Seg Neuts % (Manual) Lymphocytes % (Manual) Seg Neutrophils # Man 22.3 H Lymphocytes # (Manual) 7.4 H Monocytes # (Manual) 1.7 H PT 16.3 H INR 1.25 H APTT 49.1 H ABG pH 7.229 L POC ABG pCO2 50.1 H POC ABG pO2 69.4 L ABG pO2 ABG HCO3 ABG Base Excess ABG Oxyhemoglobin 88.9 L ABG Potassium 3.0 L ABG Chloride ABG Glucose 361 H Potassium Chloride Carbon Dioxide BUN Creatinine Glucose POC Glucose Lactic Acid Calcium Phosphorus Magnesium AST ALT Alkaline Phosphatase CK-MB (CK-2) Troponin T NT-Pro-B Natriuret Pep Total Protein Albumin Triglycerides LDL Cholesterol Direct HDL Cholesterol TSH Arterial Blood Glucose 361 H Arterial Blood Ionized Calcium 4.3 L Ur Specific [place] Urine WBC (Auto) 11/09/20 11/09/20 11/09/20 01:43 01:43 05:31 WBC Hgb Hct MCH RDW Seg Neuts % (Manual) Lymphocytes % (Manual) Seg Neutrophils # Man Lymphocytes # (Manual) Monocytes # (Manual) PT INR APTT ABG pH POC ABG pCO2 POC ABG pO2 ABG pO2 ABG HCO3 ABG Base Excess ABG Oxyhemoglobin ABG Potassium ABG Chloride ABG Glucose Potassium Chloride Carbon Dioxide 15 L BUN 5 L Creatinine Glucose 260 H POC Glucose Lactic Acid 4.90 H* Calcium 7.1 L Phosphorus Magnesium 1.40 L AST 267 H ALT 114 H Alkaline Phosphatase 258 H CK-MB (CK-2) 4.1 H Troponin T 0.043 H NT-Pro-B Natriuret Pep 3038 H Total Protein 5.3 L Albumin 2.7 L Triglycerides 168 H LDL Cholesterol Direct 41 L HDL Cholesterol 23 L TSH 36.290 H Arterial Blood Glucose Arterial Blood Ionized Calcium Ur Specific [place] Urine WBC (Auto) 11/09/20 11/09/20 11/09/20 05:31 05:31 09:01 WBC Hgb 15.3 H D Hct 47.2 H D MCH RDW Seg Neuts % (Manual) Lymphocytes % (Manual) Seg Neutrophils # Man Lymphocytes # (Manual) Monocytes # (Manual) PT 15.0 H INR APTT ABG pH 7.317 L POC ABG pCO2 POC ABG pO2 ABG pO2 154.8 H ABG HCO3 18.2 L ABG Base Excess -7.1 L ABG Oxyhemoglobin ABG Potassium ABG Chloride ABG Glucose Potassium Chloride Carbon Dioxide BUN Creatinine Glucose POC Glucose Lactic Acid Calcium Phosphorus Magnesium AST ALT Alkaline Phosphatase CK-MB (CK-2) Troponin T NT-Pro-B Natriuret Pep Total Protein Albumin Triglycerides LDL Cholesterol Direct HDL Cholesterol TSH Arterial Blood Glucose Arterial Blood Ionized Calcium Ur Specific [employer] [place] Urine WBC (Auto) 11/09/20 11/09/20 11/09/20 12:48 14:38 15:01 WBC Hgb Hct MCH RDW Seg Neuts % (Manual) Lymphocytes % (Manual) Seg Neutrophils # Man Lymphocytes # (Manual) Monocytes # (Manual) PT INR APTT ABG pH POC ABG pCO2 31.9 L POC ABG pO2 63.6 L ABG pO2 ABG HCO3 ABG Base Excess ABG Oxyhemoglobin 91.8 L ABG Potassium ABG Chloride ABG Glucose 161 H Potassium Chloride Carbon Dioxide BUN Creatinine Glucose POC Glucose 159 H Lactic Acid 3.70 H* Calcium Phosphorus Magnesium AST ALT Alkaline Phosphatase CK-MB (CK-2) Troponin T NT-Pro-B Natriuret Pep Total Protein Albumin Triglycerides LDL Cholesterol Direct HDL Cholesterol TSH Arterial Blood Glucose 161 H Arterial Blood Ionized Calcium 4.3 L Ur Specific [place] Urine WBC (Auto) 11/09/20 11/09/20 11/09/20 15:45 16:20 18:28 WBC Hgb Hct MCH RDW Seg Neuts % (Manual) Lymphocytes % (Manual) Seg Neutrophils # Man Lymphocytes # (Manual) Monocytes # (Manual) PT INR APTT ABG pH POC ABG pCO2 POC ABG pO2 ABG pO2 ABG HCO3 ABG Base Excess ABG Oxyhemoglobin ABG Potassium ABG Chloride ABG Glucose Potassium Chloride Carbon Dioxide BUN Creatinine Glucose POC Glucose 138 H Lactic Acid Calcium Phosphorus 1.70 L Magnesium AST ALT Alkaline Phosphatase CK-MB (CK-2) Troponin T NT-Pro-B Natriuret Pep Total Protein Albumin Triglycerides LDL Cholesterol Direct HDL Cholesterol TSH Arterial Blood Glucose Arterial Blood Ionized Calcium Ur Specific [employer] [place] 1.053 H Urine WBC (Auto) 13.0 H 11/09/20 11/10/20 11/10/20 23:26 05:30 05:30 WBC 31.5 H Hgb Hct MCH 27 L RDW 15.8 H Seg Neuts % (Manual) 91.0 H Lymphocytes % (Manual) 4.0 L Seg Neutrophils # Man 28.7 H Lymphocytes # (Manual) Monocytes # (Manual) 1.4 H PT 18.7 H INR 1.50 H APTT ABG pH POC ABG pCO2 POC ABG pO2 ABG pO2 ABG HCO3 ABG Base Excess ABG Oxyhemoglobin ABG Potassium ABG Chloride ABG Glucose Potassium Chloride Carbon Dioxide BUN Creatinine Glucose POC Glucose 119 H Lactic Acid Calcium Phosphorus Magnesium AST ALT Alkaline Phosphatase CK-MB (CK-2) Troponin T NT-Pro-B Natriuret Pep Total Protein Albumin Triglycerides LDL Cholesterol Direct HDL Cholesterol TSH Arterial Blood Glucose Arterial Blood Ionized Calcium Ur Specific [place] Urine WBC (Auto) 11/10/20 11/10/20 11/10/20 05:30 05:30 09:49 WBC Hgb Hct MCH RDW Seg Neuts % (Manual) Lymphocytes % (Manual) Seg Neutrophils # Man Lymphocytes # (Manual) Monocytes # (Manual) PT INR APTT ABG pH 7.188 L POC ABG pCO2 POC ABG pO2 149.6 H ABG pO2 ABG HCO3 ABG Base Excess ABG Oxyhemoglobin ABG Potassium ABG Chloride 111.0 H ABG Glucose 124 H Potassium 3.5 L Chloride 107.9 H Carbon Dioxide 17 L BUN 22 H Creatinine 1.8 H D Glucose 129 H POC Glucose Lactic Acid 2.60 H* Calcium 6.7 L Phosphorus Magnesium AST 325 H ALT 116 H Alkaline Phosphatase 182 H CK-MB (CK-2) Troponin T NT-Pro-B Natriuret Pep Total Protein 5.7 L Albumin 2.6 L Triglycerides LDL Cholesterol Direct HDL Cholesterol TSH Arterial Blood Glucose 124 H Arterial Blood Ionized Calcium 3.9 L Ur Specific [place] Urine WBC (Auto)
[2020-11-10] MEDS: NORepinephrine/NS 8 MG-250 ML 8 MG/250 ML INFUS..BTL IV SCH ×2 (19:12→23:15)
[2020-11-10] MEDS ORDERED: VASOPRESSIN 20 UNIT in SODIUM CHLORIDE 0.9% 100 ML IV SCH (20:00)
[2020-11-10] MEDS ORDERED: ENOXAPARIN 40 MG/0.4 ML INJ SUB-Q SCH (22:00)
[2020-11-10] MEDS ORDERED: POTASSIUM CHLORIDE 20 MEQ PACKET FEEDTUBE SCH (22:00)
[2020-11-10] MEDS: DEXTROSE 50% IN WATER (25GM) 50 ML SYRINGE IV PRN (23:37)
[2020-11-10] MEDS ORDERED: SODIUM BICARB 8.4% 50 MEQ/50 ML SYRINGE IV ONE (23:59)
--- NOTE | 2020-11-11 00:06 | Event Note ---
Date: 11/11/20 Was called into patient's room due to a CODE BLUE approximately around 1155. Patient was being bagged while CPR was performed total time of CPR was around 6 minutes. Patient regained pulse spontaneously after 2 doses of epinephrine 1 dose of bicarb. Care was then turned over to the hospitalist.
[2020-11-11] MEDS ORDERED: SODIUM BICARB 8.4% 50 MEQ/50 ML SYRINGE IV ONE ×2 (00:19→04:53)
[2020-11-11] MEDS: DEXTROSE 50% IN WATER (25GM) 50 ML SYRINGE IV PRN (00:30)
--- NOTE | 2020-11-11 00:45 | Event Note ---
Date: 11/11/20 LILI CHRISTINE called on 55-year-old female who has been on admission for acute hypoxic respiratory failure, bilateral pneumonia and septic shock. Resuscitative measures were commenced according to ACLS protocol. Patient has had 3 rounds of epinephrine, 1 amp of sodium bicarb with return of spontaneous circulation. Review of her labs indicates that bicarb is low at 12. She was given 2 A of sodium bicarb. Patient has also been on 2 pressors namely vasopressin and Levophed. Blood pressure has been low despite IV boluses of IV fluid. We introduce a third pressor. Blood glucose checked was about 55 and patient had an amp of D50. We will continue to monitor chemistry and also monitor blood glucose q. hourly. We will continue on current management. Daughter was called and informed of changes in patient's condition.
[2020-11-11] MEDS ORDERED: EPINEPHrine 1 MG/1 ML 8 MG in SODIUM CHLORIDE 0.9% 250ML 242 ML IV ONE (01:00)
[2020-11-11] MEDS ORDERED: EPINEPHrine 1 MG/1 ML 8 MG in SODIUM CHLORIDE 0.9% 250ML 242 ML IV SCH (01:00)
[2020-11-11] MEDS ORDERED: DOPamine/D5W 800 MG/250 ML 800 MG/250 ML BAG IV SCH (02:00)
[2020-11-11] MEDS ORDERED: EPINEPHrine 1 MG/10 ML SYRINGE ONE (04:53)
--- NOTE | 2020-11-11 05:45 | Event Note ---
Date: 11/11/20 LILI NANCI called on 55-year-old female who has been on admission for acute hypoxic respiratory failure, bilateral pneumonia and septic shock. Patient has been made a DO NOT RESUSCITATE earlier by family but decision was rescinded. Resuscitative measures were commenced according to ACLS protocol. Patient had about 3 rounds of epinephrine during which family again indicates that the resuscitative measures be discontinued. Upon exam: Pupils were fixed and dilated Chest: No breath sounds Cardiovascular exam: No heart sounds and no peripheral pulses Abdomen: Soft Extremities: Cold and clammy Central nervous system: No reflexes Patient pronounced at 0 4:57 AM on November 11, 2020. Family members were by the bedside.
--- NOTE | 2020-11-11 06:01 | XRay Report ---
CHEST 1 VIEW, 11/11/2020 227 AM CLINICAL INFORMATION/INDICATION: Respiratory failure COMPARISON: Chest radiograph, 11/10/2020 at 5:21 AM FINDINGS: SUPPORT DEVICES: Endotracheal tube, esophagogastric tube and left-sided chest tube remain in stable p osition. HEART: The cardiac silhouette is normal in size. LUNGS/PLEURA: There has been interval development of diffuse bilateral airspace opacities since the p revious study. A small right-sided pneumothorax is now present. ADDITIONAL FINDINGS: No additional acute findings. IMPRESSION: 1. New small right-sided pneumothorax. 2. Interval development of diffuse bilateral airspace opacities. Positive critical value of new pneumothorax was identified at 4:50 AM Central time and communicated t o Roberto Laughlin RN in care of the patient at 4:55 AM. CRITICAL RESULT: Time of Discovery (CHIEF EXECUTIVE OFFICER/CDT): 4:50 AM Time of Communication (CHIEF EXECUTIVE OFFICER/CDT): 4:55 AM Licensed Practitioner Receiving Report: Roberto Laughlin RN Read-Back Performed: Yes. Signer Name: Shirley Arshad MD Signed: 11/11/2020 5:57 AM Workstation Name: [id number]
[2020-11-11 07:20] VITALS: BP 73/37
--- NOTE | 2020-11-11 07:22 | Death Summary ---
Summary - Providers Date of service: 11/11/20 Consults: 11/09/20 05:14 Consult to Dietitian/Nutrition [CONS] Routine Physician Instructions: Reason For Exam: Reason for Consult: Diet education Consult to Physician [CONS] Routine Comment: Consulting Provider: REYES GRIMES Physician Instructions: Reason For Exam: Cardiac Arrest Consult to Physician [CONS] Routine Comment: Dr. Brock spoke with Dr. Sandhu @ [phone] Consulting Provider: KERRY NASCIMENTO Physician Instructions: Reason For Exam: Cardiac Arrest 11/09/20 05:18 Consult to Physician [CONS] Routine Comment: Consulting Provider: PARUL LANIER Physician Instructions: Reason For Exam: Elevated liver enzymes 11/09/20 05:30 Consult to Physician [CONS] Routine Comment: Dr. Brock spoke with Dr. Haney @ [phone] Consulting Provider: MANJU HANEY Physician Instructions: Reason For Exam: Trace left apical pneumothorax 11/09/20 10:03 Consult to Physician [CONS] Routine Comment: Consulting Provider: MARCIA COLEMAN Physician Instructions: Reason For Exam: anoxic encephalopathy 11/09/20 15:10 Occupational Therapy Evaluate and Treat [CONS] Routine Comment: Reason For Exam: evaluate and treat Physical Therapy Evaluation and Treat [CONS] Routine Comment: Reason For Exam: evaluate and treat 11/09/20 15:12 Consult to Physician [CONS] Routine Comment: Consulting Provider: NICOLASA MCNAMARA Physician Instructions: Reason For Exam: Septic Shock Attending: CHARLI ALBERTO - summary Date of admission: 11/09/20 05:01 Date of : 11/11/20 Disposition: 55-year-old female with history of breast cancer, cellulitis was admitted to the hospital after she had a cardiac arrest at home, was found to be in asystole in the ER. She was resuscitated, intubated and was placed on mechanical ventilation. Patient was noted to be hypotensive requiring pressors. Patient's son reported no complaints prior to admission. During ER course, Patient was noted to have runs of ventricular tachycardia. CTA of the chest revealed a left apical pneumothorax for which she underwent a chest tube placement. The patient was admitted with diagnosis of s/p cardiopulmonary arrest, hypomagnesemia, elevated liver enzymes, acute hypoxic respiratory failure, left pneumothorax, cardiac dysrhythmia, sepsis with leukocytosis. The patient was seen by GI, pulmonary, general surgery, cardiology and infectious disease in consultation. The patient's prognosis was extremely guarded and patient showed no significant improvement throughout hospitalization. Given the leukocytosis, elevated lactic acid and cardiac arrest at home, medical team highly suspicious of acute ischemic liver injury/shock. Routine hepatitis neurology's were negative. Patient was treated with empiric antibiotics of cefepime and vancomycin. Unfortunately, patient continued decline and CODE BLUE was called on 11/11/2020 around 1155p. Total time of ACLS/CPR was approximately 6 minutes. Patient had a second episode of a code this morning at approximately 4:30 AM. Resuscitative measures with ACLS protocol were initiated however unsuccessful and patient was pronounced at 4:57 AM on November 11, 2020. Dedicated summary time 35 minutes.
[2020-11-11] MEDS ORDERED: VANCOMYCIN 1,750 MG in SODIUM CHLORIDE 0.9% 500 ML 500 ML IV SCH (18:00)
--- NOTE | 2020-11-14 12:42 | Electrocardiograph Report ---
[facility] Test Date: 2020-11-09 Test Time: 01:52:42 Pat Name: VANDANA VEGAS Department: Room: A257 1 Gender: F [employer] Crew: LYNNE : 1965 Requested By: FLOR CANNON Order Number: [id number] Reading MD: Sugey Wong Measurements Intervals [place] Rate: 114 P: [place]: QRS: 146 QRSD: 129 T: 66 QT: 426 QTc: 588 Interpretive Statements Consider sinus tachycardia with marked first-degree AV block Versus junctional or supraventricular tachycardia with intraventricular conduction delay and retrograde P waves RBBB and LPFB Marked ST depression, consider anterolateral ischemia versus acute posterior infarct No previous ECG available for comparison Electronically Signed On 11-14-2020 12:42:24 EDT by Sugey Wong
== END 2020-11-11 07:56 | DRG 871 ==
LOC: ED 01:14 → CC1 05:01
PROVIDERS: ADMIT Internal Medicine Geriatric Medicine; ATTEND Hospitalist
PROC: 0BH18EZ Insertion of Endotracheal Airway into Trachea, Via Natural or Artificial Opening Endoscopic (ICD-10-PCS; principal; 2020-11-09)
PROC: 5A1945Z Respiratory Ventilation, 24-96 Consecutive Hours (ICD-10-PCS; 2020-11-09)
PROC: 0W9B30Z Drainage of Left Pleural Cavity with Drainage Device, Percutaneous Approach (ICD-10-PCS; 2020-11-09)
PROC: 4A033R1 Measurement of Arterial Saturation, Peripheral, Percutaneous Approach (ICD-10-PCS; 2020-11-09)
PROC: 06HY33Z Insertion of Infusion Device into Lower Vein, Percutaneous Approach (ICD-10-PCS; 2020-11-09)
PROC: 5A12012 Performance of Cardiac Output, Single, Manual (ICD-10-PCS; 2020-11-11)
DX: A41.9 Sepsis, unspecified organism (principal); J96.01 Acute respiratory failure with hypoxia; K72.00 Acute and subacute hepatic failure without coma; R65.21 Severe sepsis with septic shock; I21.4 Non-ST elevation (NSTEMI) myocardial infarction; G93.40 Encephalopathy, unspecified; J18.9 Pneumonia, unspecified organism; Z20.822 Contact with and (suspected) exposure to COVID-19; I46.9 Cardiac arrest, cause unspecified; R65.20 Severe sepsis without septic shock; J93.9 Pneumothorax, unspecified; E83.42 Hypomagnesemia; R74.01 Elevation of levels of liver transaminase levels; R79.89 Other specified abnormal findings of blood chemistry; I49.9 Cardiac arrhythmia, unspecified; D72.829 Elevated white blood cell count, unspecified; E87.2 Acidosis; Z66 Do not resuscitate; N17.9 Acute kidney failure, unspecified; D09.9 Carcinoma in situ, unspecified; J98.11 Atelectasis; E66.9 Obesity, unspecified; Z68.39 Body mass index [BMI] 39.0-39.9, adult; Z71.3 Dietary counseling and surveillance; Z85.3 Personal history of malignant neoplasm of breast; Z85.038 Personal history of other malignant neoplasm of large intestine; Z79.899 Other long term (current) drug therapy; Z79.891 Long term (current) use of opiate analgesic; Z79.01 Long term (current) use of anticoagulants
CPT/HCPCS: 31500; 36415; 36600; 70450; 71045; 71275; 74018; 80053; 80061; 80074; 80307; 81001; 82140; 82550; 82553; 82803; 82805; 82962; 83036; 83735; 83880; 84100; 84145; 84439; 84443; 84484; 85007; 85014; 85018; 85025; 85049; 85520; 85610; 85730; 86850; 86900; 86901; 87040; 87070; 87086; 87205; 87641; 93005; 94002; 94003; G0378; J0171; J0282; J0692; J1265; J1644; J1650; J2543; J2704; J3010; J3370; J3475; J7030; J7040; J7050; J7060; Q9967; U0003